=== PATIENT | male | born 1945 | race Caucasian/White ===

== ENCOUNTER 2021-10-25 17:02 | Inpatient (IN) | payer MEDICARE ==
[2021-10-25] MEDS ORDERED: ZIPRASIDONE MESYLATE 20 MG VIAL IM PRN (20:40)
[2021-10-25] MEDS: traZODone 100 MG TAB PO SCH (22:57)
--- NOTE | 2021-10-26 08:29 | History and Physical Report ---
GP History & Physical - History of Present Illness Date of admission: 10/25/21 Date of Examination: 10/26/21 Reason for Admission: Failure of Outpatient Treatment, Severe anxiety/depression, Unable to care for self History of Present Illness: The patient was seen today. He is confused and appears restless in bed. He is moving about with his feet. He is reaching his hand and asking me to pull him up. The patient is already as up in the bed as he can go. He is unable to give any insight into his history or what's presently going on with him. PAST PSYCHIATRIC HISTORY: Unable to assess PAST MEDICAL HISTORY: unknown Family Psychiatric History: None reported or documented SOCIAL HISTORY Unable to assess REVIEW OF SYSTEMS Unable to assess MENTAL STATUS EXAMINATION Unable to assess Assessment (1) Schizophrenia Treatment Plan Patient admitted for inpatient psychiatric evaluation, medication adjustment and close monitoring The patient's behavior, mood, sleep and appetite will be closely monitored. Patient enrolled in individual and group therapeutic sessions and encouraged to attend. Patient provided with a safe and structured environment. Patient's physical health needs will be addressed by the Hospitalist. Hospitalist Consulted Labs including CBC, CMP, Lipid profile and Hemoglobin A1C levels ordered for baseline reference Social Assessment will be completed and the Production Assistant will work with patient and family to ensure a suitable and safe disposition Medication adjustment will be made as clinically indicated Start Valproic 125mg po daily Usual Wellness Mormon/Preservation: - Start Trazodone 50 mg po QHS & 50 mg po QHS PRN between 10 PM & 2 AM for insomnia - Start Melatonin 5 mg po QHS to promote circadian rhythm The patient agreed on the treatment plan, understood the risk, benefit, alternative treatment, potential consequence of no treatment, and gave informed consent. Estimated days:7 Post hospital care: primary care provider, psychiatric provider Case staffed with Dr. Alvarado Legal Status: Voluntary Reaction to Hospitalization: Accepting Medications and Allergies Allergies Allergy/AdvReac Type Severity Reaction Status Date / Time No Known Drug Allergies Allergy Unknown Verified 10/25/21 20:31 Home Medications Medication Instructions Recorded Confirmed Last Taken Type Benazepril/Hydrochlorothiazide 10 - 12.5 mg PO DAILY 10/25/21 10/25/21 Unknown History [Lotensin Hct 10-12.5 mg Tablet] Nortriptyline HCl 10 mg PO HS 10/25/21 10/25/21 Unknown History Pantoprazole [Protonix] 40 mg PO QDAY 10/25/21 10/25/21 Unknown History Potassium Chloride [K-Dur] 20 meq PO QDAY 10/25/21 10/25/21 Unknown History Azithromycin [Zithromax] 250 mg PO UNK 10/26/21 10/26/21 Unknown History Cefdinir 300 mg PO BID MDD DISPENSE 14 10/26/21 10/26/21 Unknown History CAPSULE Active Meds: Active Medications Trazodone HCl (Trazodone 100 Mg Tab) 100 mg PO QHS [id number] Last Admin: 10/25/21 22:57 Dose: 100 mg Ziprasidone (Ziprasidone Mesylate 20 Mg Vial) 10 mg IM Q6H PRN PRN Reason: Agitation Results - Results Labs/Vitals: Laboratory Last Values POC Glucose 125 mg/dL (70-105) H 10/26/21 07:17 Last Vital Signs Temp 99.4 F 10/25/21 20:20 Pulse 87 10/25/21 20:20 Resp 17 10/25/21 20:20 BP 175/93 10/25/21 20:20 Pulse Ox 96 10/25/21 20:20 Physical Examination - Constitutional Vitals: Vital Signs Temp Pulse Resp BP Pulse Ox 99.4 F 87 17 175/93 96 10/25/21 20:20 10/25/21 20:20 10/25/21 20:20 10/25/21 20:20 10/25/21 20:20 Temperature -Last 24 Hours Temperature 99.4 F Mental Status Exam - Vital signs Last Vital Signs Temp 99.4 F 10/25/21 20:20 Pulse 87 10/25/21 20:20 Resp 17 10/25/21 20:20 BP 175/93 10/25/21 20:20 Pulse Ox 96 10/25/21 20:20 Physician Certification - Certification Statement Physician Certification Statement: This is an acknowledgement statement that MARK CHAVIS is a 76 year old M who requires inpatient psychiatric admission for treatment which could reasonably be expected to improve the patient's condition for Estimated period of time patient will need to remain in the hospital: [ ] Plan for post-hospital care: [ ]
[2021-10-26] MEDS ORDERED: BENAZEPRIL PO SCH (10:00)
[2021-10-26] MEDS ORDERED: HYDROCHLOROTHIAZIDE PO SCH (10:00)
[2021-10-26] MEDS ORDERED: [UNRECOGNIZED DRUG - OTHER] PO SCH (10:00)
[2021-10-26] MEDS ORDERED: NON-FORMULARY EACH (Cefdinir [Cefdinir] 300 MG Capsule) PO SCH (10:00)
[2021-10-26] MEDS: POTASSIUM CHLORIDE ER 20 MEQ TAB PO SCH (10:47)
[2021-10-26] MEDS: LISINOPRIL 10 MG TAB PO SCH (10:47)
[2021-10-26] MEDS: PANTOPRAZOLE 40 MG TAB PO SCH (10:47)
[2021-10-26] MEDS: VALPROIC ACID 250 MG/5 ML ORAL LIQD PO SCH (10:48)
[2021-10-26] MEDS: hydroCHLOROthiazide 12.5 MG CAP PO SCH (10:48)
--- NOTE | 2021-10-26 11:01 | Consultation ---
History of Present Illness - Reason for Consult Consult date: 10/26/21 medical management Requesting physician: DEBRA ADAN - History of Present Illness 76 YO Male with Vascular Dementia with Behavioral Disturbance, Cerebral Atherosclerosis, Shzizophrenia, AFUA, Depression admitted to [facility] for psychiatric stabilization. Consult placed by Dr. Adan for medical management. Patient seen and evaluated in his room. No reports of fever, chills, chest pain, palpitation, adductive cough, skin rash, recent contact, or known exposure to COVID-19. Patient resting comfortably. Patient denies pain. Medications and Allergies Allergies Allergy/AdvReac Type Severity Reaction Status Date / Time No Known Drug Allergies Allergy Unknown Verified 10/25/21 20:31 Home Medications Medication Instructions Recorded Confirmed Last Taken Type Benazepril/Hydrochlorothiazide 10 - 12.5 mg PO DAILY 10/25/21 10/25/21 Unknown History [Lotensin Hct 10-12.5 mg Tablet] Nortriptyline HCl 10 mg PO HS 10/25/21 10/25/21 Unknown History Pantoprazole [Protonix] 40 mg PO QDAY 10/25/21 10/25/21 Unknown History Potassium Chloride [K-Dur] 20 meq PO QDAY 10/25/21 10/25/21 Unknown History Azithromycin [Zithromax] 250 mg PO UNK 10/26/21 10/26/21 Unknown History Cefdinir 300 mg PO BID MDD DISPENSE 14 10/26/21 10/26/21 Unknown History CAPSULE Active Meds: Active Medications Azithromycin (Azithromycin 250 Mg Tab) 250 mg PO [facility]; Protocol Hydrochlorothiazide (Hydrochlorothiazide 12.5 Mg Cap) 12.5 mg PO QDAY [facility] Last Admin: 10/26/21 10:48 Dose: 12.5 mg Lisinopril (Lisinopril 10 Mg Tab) 10 mg PO QDAY [facility] Last Admin: 10/26/21 10:47 Dose: 10 mg Miscellaneous Medication (Cefdinir [Cefdinir]) 300 mg PO BID [facility] Nortriptyline HCl (Nortriptyline 10 Mg Cap) 10 mg PO [facility] Pantoprazole Sodium (Pantoprazole 40 Mg Tab) 40 mg PO QDAY [facility] Last Admin: 10/26/21 10:47 Dose: 40 mg Potassium Chloride (Potassium Chloride Er 20 Meq Tab) 20 meq PO QDAY [facility] Last Admin: 10/26/21 10:47 Dose: 20 meq Trazodone HCl (Trazodone 100 Mg Tab) 100 mg PO QHS [facility] Last Admin: 10/25/21 22:57 Dose: 100 mg Valproic Acid (Valproic Acid 250 Mg/5 Ml Oral Liqd) 125 mg PO DAILY [facility] Last Admin: 10/26/21 10:48 Dose: 125 mg Ziprasidone (Ziprasidone Mesylate 20 Mg Vial) 10 mg IM Q6H PRN PRN Reason: Agitation Exam - Constitutional Vitals: Temp Pulse Resp BP Pulse Ox 98.2 F 88 16 160/77 96 10/26/21 08:21 10/26/21 10:47 10/26/21 08:21 10/26/21 10:47 10/25/21 20:20 Results - Labs Labs: Abnormal lab results 10/26/21 Range/Units 07:17 POC Glucose 125 H (70-105) mg/dL Assessment and Plan - Patient Problems (1) Pneumonia Current Visit: Yes Status: Acute Plan to address problem: Continue oral antibiotic therapy for 5 days to complete outpatient treatment regimen (2) Vascular dementia with behavioral disturbance Current Visit: Yes Status: Acute Plan to address problem: Verbal prompting, verbal redirection, benzodiazepine therapy as clinically indicated. (3) Cerebral atherosclerosis Current Visit: Yes Status: Acute Plan to address problem: Risk factor reduction therapy, antiplatelet therapy as clinically indicated. (4) Hypertension Current Visit: Yes Status: Acute Qualifiers: Hypertension type: primary hypertension Qualified Code(s): I10 - Essential (primary) hypertension Plan to address problem: Monitor blood pressure every shift, continue medical management (5) GERD (gastroesophageal reflux disease) Current Visit: Yes Status: Acute Qualifiers: Esophagitis presence: without esophagitis Qualified Code(s): K21.9 - Gastro-esophageal reflux disease without esophagitis Plan to address problem: PPI therapy, supportive care (6) Depression Current Visit: Yes Status: Acute Plan to address problem: Continue medical management, behavior change counseling. (7) Advance care planning Current Visit: Yes Status: Acute Plan to address problem: Disease education conducted, care plan discussed, diagnoses discussed, prognosis discussed, patient is full code. Patient acknowledges understanding and agreement with care plan, +30 minutes.
[2021-10-26] MEDS ORDERED: FLU VACC QUAD 2021-22(6MOS UP)/PF 60 MCG/0.5 ML SYRINGE IM ONE (12:00)
[2021-10-26] MEDS: AZITHROMYCIN 250 MG TAB PO SCH (15:48)
[2021-10-26] MEDS: traZODone 100 MG TAB PO SCH (21:51)
[2021-10-26] MEDS: NORTRIPTYLINE 10 MG CAP PO SCH (21:51)
--- NOTE | 2021-10-27 09:02 | Progress Note ---
Subjective Date of service: 10/27/21 Principal diagnosis: Dementia w/Bheavioral Disturbance Subjective Comment: The patient was seen today. He is confused. He is staring in bed awake. He is staring at the ceiling. He then says something that's incomprehensible. REVIEW OF SYSTEMS Unable to assess MENTAL STATUS EXAMINATION Unable to assess Assessment (1) Schizophrenia Treatment Plan Patient admitted for inpatient psychiatric evaluation, medication adjustment and close monitoring The patient's behavior, mood, sleep and appetite will be closely monitored. Patient enrolled in individual and group therapeutic sessions and encouraged to attend. Patient provided with a safe and structured environment. Patient's physical health needs will be addressed by the Hospitalist. Hospitalist Consulted Labs including CBC, CMP, Lipid profile and Hemoglobin A1C levels ordered for baseline reference Social Assessment will be completed and the Seal Mixer will work with patient and family to ensure a suitable and safe disposition Medication adjustment will be made as clinically indicated Start Valproic 125mg po daily yesterday No changes made today Usual Wellness Mandaeism/Preservation: - Start Trazodone 50 mg po QHS & 50 mg po QHS PRN between 10 PM & 2 AM for insomnia - Start Melatonin 5 mg po QHS to promote circadian rhythm The patient agreed on the treatment plan, understood the risk, benefit, alternative treatment, potential consequence of no treatment, and gave informed consent. Estimated days:7 Post hospital care: primary care provider, psychiatric provider Case staffed with Dr. Alvarado Medications and Allergies Allergies Allergy/AdvReac Type Severity Reaction Status Date / Time No Known Drug Allergies Allergy Unknown Verified 10/25/21 20:31 Home Medications Medication Instructions Recorded Confirmed Last Taken Type Benazepril/Hydrochlorothiazide 10 - 12.5 mg PO DAILY 10/25/21 10/25/21 Unknown History [Lotensin Hct 10-12.5 mg Tablet] Nortriptyline HCl 10 mg PO HS 10/25/21 10/25/21 Unknown History Pantoprazole [Protonix] 40 mg PO QDAY 10/25/21 10/25/21 Unknown History Potassium Chloride [K-Dur] 20 meq PO QDAY 10/25/21 10/25/21 Unknown History Azithromycin [Zithromax] 250 mg PO UNK 10/26/21 10/26/21 Unknown History Cefdinir 300 mg PO BID MDD DISPENSE 14 10/26/21 10/26/21 Unknown History CAPSULE Active Meds: Active Medications Azithromycin (Azithromycin 250 Mg Tab) 250 mg PO DAILY [facility]; Protocol Stop: 10/30/21 10:01 Last Admin: 10/26/21 15:48 Dose: 250 mg Cefuroxime Axetil (Cefuroxime 250 Mg Tab) 250 mg PO Q12HR [facility]; Protocol Stop: 10/31/21 22:01 Hydrochlorothiazide (Hydrochlorothiazide 12.5 Mg Cap) 12.5 mg PO QDAY [facility] Last Admin: 10/26/21 10:48 Dose: 12.5 mg Lisinopril (Lisinopril 10 Mg Tab) 10 mg PO QDAY [facility] Last Admin: 10/26/21 10:47 Dose: 10 mg Nortriptyline HCl (Nortriptyline 10 Mg Cap) 10 mg PO HS [facility] Last Admin: 10/26/21 21:51 Dose: 10 mg Pantoprazole Sodium (Pantoprazole 40 Mg Tab) 40 mg PO QDAY [facility] Last Admin: 10/26/21 10:47 Dose: 40 mg Potassium Chloride (Potassium Chloride Er 20 Meq Tab) 20 meq PO QDAY [facility] Last Admin: 10/26/21 10:47 Dose: 20 meq Trazodone HCl (Trazodone 100 Mg Tab) 100 mg PO QHS [facility] Last Admin: 10/26/21 21:51 Dose: 100 mg Valproic Acid (Valproic Acid 250 Mg/5 Ml Oral Liqd) 125 mg PO DAILY [facility] Last Admin: 10/26/21 10:48 Dose: 125 mg Ziprasidone (Ziprasidone Mesylate 20 Mg Vial) 10 mg IM Q6H PRN PRN Reason: Agitation Results - Results Labs/Vitals: Laboratory Last Values POC Glucose 168 mg/dL (70-105) H 10/27/21 06:15 Last Vital Signs Temp 97.2 F L 10/26/21 20:00 Pulse 100 H 10/26/21 20:00 Resp 20 10/26/21 20:00 BP 170/93 10/26/21 20:00 Pulse Ox 96 10/26/21 20:00
[2021-10-27] MEDS: VALPROIC ACID 250 MG/5 ML ORAL LIQD PO SCH (10:38)
[2021-10-27] MEDS: AZITHROMYCIN 250 MG TAB PO SCH (10:38)
[2021-10-27] MEDS: hydroCHLOROthiazide 12.5 MG CAP PO SCH (10:38)
[2021-10-27] MEDS: POTASSIUM CHLORIDE ER 20 MEQ TAB PO SCH (10:38)
[2021-10-27] MEDS: PANTOPRAZOLE 40 MG TAB PO SCH (10:39)
[2021-10-27] MEDS: LISINOPRIL 10 MG TAB PO SCH (10:41)
[2021-10-27 11:36] LABS: Basophils % (Auto) 0.2 % (0.0-1.8); Hematocrit 43.6 % (35.5-45.6); Hemoglobin 14.7 gm/dl (11.8-15.2); Lymphocytes # (Auto) 1.5 K/mm3 (1.2-5.4); Lymphocytes % (Auto) 9.4 % (13.4-35.0); Mean Corpuscular HGB Conc 34 % (32-34); Mean Corpuscular Volume 90 fl (84-94); Monocytes # (Auto) 1.5 K/mm3 (0.0-0.8); Monocytes % (Auto) 9.8 % (0.0-7.3); Platelet Count 240 K/mm3 (140-440); Red Blood Count 4.86 M/mm3 (3.65-5.03); Red Cell Distribution Width 13.5 % (13.2-15.2)
[2021-10-27 12:11] LABS: Alanine Aminotransferase 24 units/L (7-56); Albumin 3.4 g/dL (3.9-5); BUN/Creatinine Ratio 13; Blood Urea Nitrogen 13 mg/dL (9-20); HDL Cholesterol 34 mg/dL (40-59); Hemolysis Index 2; LDL Cholesterol,Direct 119 mg/dL (50-130)
[2021-10-27] MEDS: traZODone 100 MG TAB PO SCH (21:17)
[2021-10-27] MEDS: NORTRIPTYLINE 10 MG CAP PO SCH (21:17)
--- NOTE | 2021-10-28 10:00 | Progress Note ---
Subjective Date of service: 10/28/21 Principal diagnosis: Dementia w/Bheavioral Disturbance Subjective Comment: 10/28/21: The patient was seen today. The patient is confused. Per nurse, he slept through the night. No aggressive behaviors reported. REVIEW OF SYSTEMS Unable to assess MENTAL STATUS EXAMINATION Unable to assess Assessment (1) Schizophrenia Treatment Plan Patient admitted for inpatient psychiatric evaluation, medication adjustment and close monitoring The patient's behavior, mood, sleep and appetite will be closely monitored. Patient enrolled in individual and group therapeutic sessions and encouraged to attend. Patient provided with a safe and structured environment. Patient's physical health needs will be addressed by the Hospitalist. Hospitalist Consulted Labs including CBC, CMP, Lipid profile and Hemoglobin A1C levels ordered for baseline reference Social Assessment will be completed and the Medical Staff Credentialing Coordinator will work with pat ient and family to ensure a suitable and safe disposition Medication adjustment will be made as clinically indicated Continue Valproic 125mg po daily yesterday No changes made today Usual Wellness Confucianist/Preservation: - Start Trazodone 50 mg po QHS & 50 mg po QHS PRN between 10 PM & 2 AM for insomnia - Start Melatonin 5 mg po QHS to promote circadian rhythm The patient agreed on the treatment plan, understood the risk, benefit, alternative treatment, potential consequence of no treatment, and gave informed consent. Estimated days:7 Post hospital care: primary care provider, psychiatric provider Case staffed with Dr. Alvarado Medications and Allergies Medications and Allergies Allergies Allergy/AdvReac Type Severity Reaction Status Date / Time No Known Drug Allergies Allergy Unknown Verified 10/25/21 20:31 Home Medications Medication Instructions Recorded Confirmed Last Taken Type Benazepril/Hydrochlorothiazide 10 - 12.5 mg PO DAILY 10/25/21 10/25/21 Unknown History [Lotensin Hct 10-12.5 mg Tablet] Nortriptyline HCl 10 mg PO HS 10/25/21 10/25/21 Unknown History Pantoprazole [Protonix] 40 mg PO QDAY 10/25/21 10/25/21 Unknown History Potassium Chloride [K-Dur] 20 meq PO QDAY 10/25/21 10/25/21 Unknown History Azithromycin [Zithromax] 250 mg PO UNK 10/26/21 10/26/21 Unknown History Cefdinir 300 mg PO BID MDD DISPENSE 14 10/26/21 10/26/21 Unknown History CAPSULE Active Meds: Active Medications Azithromycin (Azithromycin 250 Mg Tab) 250 mg PO DAILY [facility]; Protocol Stop: 10/30/21 10:01 Last Admin: 10/27/21 10:38 Dose: 250 mg Cefuroxime Axetil (Cefuroxime 250 Mg Tab) 250 mg PO Q12HR [facility]; Protocol Stop: 10/31/21 22:01 Last Admin: 10/27/21 21:16 Dose: 250 mg Hydrochlorothiazide (Hydrochlorothiazide 12.5 Mg Cap) 12.5 mg PO QDAY [facility] Last Admin: 10/27/21 10:38 Dose: 12.5 mg Lisinopril (Lisinopril 10 Mg Tab) 10 mg PO QDAY [facility] Last Admin: 10/27/21 10:41 Dose: 10 mg Nortriptyline HCl (Nortriptyline 10 Mg Cap) 10 mg PO HS [facility] Last Admin: 10/27/21 21:17 Dose: 10 mg Pantoprazole Sodium (Pantoprazole 40 Mg Tab) 40 mg PO QDAY [facility] Last Admin: 10/27/21 10:39 Dose: 40 mg Potassium Chloride (Potassium Chloride Er 20 Meq Tab) 20 meq PO QDAY [facility] Last Admin: 10/27/21 10:38 Dose: 20 meq Trazodone HCl (Trazodone 100 Mg Tab) 100 mg PO QHS [facility] Last Admin: 10/27/21 21:17 Dose: 100 mg Valproic Acid (Valproic Acid 250 Mg/5 Ml Oral Liqd) 125 mg PO DAILY [facility] Last Admin: 10/27/21 10:38 Dose: 125 mg Ziprasidone (Ziprasidone Mesylate 20 Mg Vial) 10 mg IM Q6H PRN PRN Reason: Agitation Results - Results Labs/Vitals: Laboratory Last Values WBC 15.5 K/mm3 (4.5-11.0) H 10/27/21 10:52 RBC 4.86 M/mm3 (3.65-5.03) 10/27/21 10:52 Hgb 14.7 gm/dl (11.8-15.2) 10/27/21 10:52 Hct 43.6 % (35.5-45.6) 10/27/21 10:52 MCV 90 fl (84-94) 10/27/21 10:52 MCH 30 pg (28-32) 10/27/21 10:52 MCHC 34 % (32-34) 10/27/21 10:52 RDW 13.5 % (13.2-15.2) 10/27/21 10:52 Plt Count 240 K/mm3 (140-440) 10/27/21 10:52 Lymph % (Auto) 9.4 % (13.4-35.0) L 10/27/21 10:52 [place] % (Auto) 9.8 % (0.0-7.3) H 10/27/21 10:52 Eos % (Auto) 0.0 % (0.0-4.3) 10/27/21 10:52 Baso % (Auto) 0.2 % (0.0-1.8) 10/27/21 10:52 Lymph # (Auto) 1.5 K/mm3 (1.2-5.4) 10/27/21 10:52 [place] # (Auto) 1.5 K/mm3 (0.0-0.8) H 10/27/21 10:52 Eos # (Auto) 0.0 K/mm3 (0.0-0.4) 10/27/21 10:52 Baso # (Auto) 0.0 K/mm3 (0.0-0.1) 10/27/21 10:52 Seg Neutrophils % 80.6 % (40.0-70.0) H 10/27/21 10:52 Seg Neutrophils # 12.5 K/mm3 (1.8-7.7) H 10/27/21 10:52 Sodium 141 mmol/L (137-145) 10/27/21 10:52 Potassium 3.2 mmol/L (3.6-5.0) L 10/27/21 10:52 Chloride 102.4 mmol/L (98-107) 10/27/21 10:52 Carbon Dioxide 16 mmol/L (22-30) L 10/27/21 10:52 Anion Gap 26 mmol/L 10/27/21 10:52 BUN 13 mg/dL (9-20) 10/27/21 10:52 Creatinine 1.0 mg/dL (0.8-1.3) 10/27/21 10:52 Estimated GFR > 60 ml/min 10/27/21 10:52 BUN/Creatinine Ratio 13 % 10/27/21 10:52 Glucose 172 mg/dL (75-100) H 10/27/21 10:52 POC Glucose 160 mg/dL (70-105) H 10/28/21 07:33 Hemoglobin A1c 8.1 % (4-6) H 10/27/21 10:52 Calcium 10.0 mg/dL (8.4-10.2) 10/27/21 10:52 Total Bilirubin 0.90 mg/dL (0.1-1.2) 10/27/21 10:52 AST 20 units/L (5-40) 10/27/21 10:52 ALT 24 units/L (7-56) 10/27/21 10:52 Alkaline Phosphatase 95 units/L (35-129) 10/27/21 10:52 Total Protein 7.5 g/dL (6.3-8.2) 10/27/21 10:52 Albumin 3.4 g/dL (3.9-5) L 10/27/21 10:52 Albumin/Globulin Ratio 0.8 % 10/27/21 10:52 Triglycerides 135 mg/dL (2-149) 10/27/21 10:52 Cholesterol 177 mg/dL (50-199) 10/27/21 10:52 LDL Cholesterol Direct 119 mg/dL (50-130) 10/27/21 10:52 HDL Cholesterol 34 mg/dL (40-59) L 10/27/21 10:52 Cholesterol/HDL Ratio 5.20 % 10/27/21 10:52 TSH 1.720 mlU/mL (0.270-4.200) 10/27/21 10:52 Last Vital Signs Temp 98.6 F 10/27/21 22:00 Pulse 84 10/27/21 22:00 Resp 20 10/27/21 22:00 BP 145/81 10/27/21 22:00 Pulse Ox 100 10/27/21 22:00
[2021-10-28] MEDS: hydroCHLOROthiazide 12.5 MG CAP PO SCH (11:29)
[2021-10-28] MEDS: POTASSIUM CHLORIDE ER 20 MEQ TAB PO SCH (11:29)
[2021-10-28] MEDS: PANTOPRAZOLE 40 MG TAB PO SCH (11:29)
[2021-10-28] MEDS: VALPROIC ACID 250 MG/5 ML ORAL LIQD PO SCH (11:30)
[2021-10-28] MEDS: AZITHROMYCIN 250 MG TAB PO SCH (11:30)
[2021-10-28] MEDS: LISINOPRIL 10 MG TAB PO SCH (11:30)
[2021-10-28] MEDS: NORTRIPTYLINE 10 MG CAP PO SCH (21:28)
[2021-10-28] MEDS: traZODone 100 MG TAB PO SCH (21:28)
--- NOTE | 2021-10-29 07:30 | Progress Note ---
Assessment and Plan - Patient Problems (1) Pneumonia Current Visit: Yes Status: Acute Plan to address problem: Continue oral antibiotic therapy for 5 days to complete outpatient treatment regimen (2) Vascular dementia with behavioral disturbance Current Visit: Yes Status: Acute Plan to address problem: Verbal prompting, verbal redirection, benzodiazepine therapy as clinically indicated. (3) Cerebral atherosclerosis Current Visit: Yes Status: Acute Plan to address problem: Risk factor reduction therapy, antiplatelet therapy as clinically indicated. (4) Hypertension Current Visit: Yes Status: Acute Qualifiers: Hypertension type: primary hypertension Qualified Code(s): I10 - Essential (primary) hypertension Plan to address problem: Monitor blood pressure every shift, continue medical management (5) GERD (gastroesophageal reflux disease) Current Visit: Yes Status: Acute Qualifiers: Esophagitis presence: without esophagitis Qualified Code(s): K21.9 - Gastro-esophageal reflux disease without esophagitis Plan to address problem: PPI therapy, supportive care (6) Depression Current Visit: Yes Status: Acute Plan to address problem: Continue medical management, behavior change counseling. (7) Advance care planning Current Visit: Yes Status: Acute Plan to address problem: Disease education conducted, care plan discussed, diagnoses discussed, prognosis discussed, patient is full code. Patient acknowledges understanding and agreement with care plan, +30 minutes. History Interval history: 76 YO Male with Vascular Dementia with Behavioral Disturbance, Cerebral Atherosclerosis, Shzizophrenia, AFUA, Depression admitted to [facility] for psychiatric stabilization. Consult placed by Dr. Weldon for medical management. Patient seen and evaluated in his room. N Patient resting comfortably. Patient denies pain. Hospitalist Physical - Constitutional Vitals: Temp Pulse Resp BP Pulse Ox 98.4 F 103 H 17 158/85 94 10/28/21 20:19 10/28/21 20:19 10/28/21 20:19 10/28/21 20:19 10/28/21 20:19 General appearance: Present: no acute distress - EENT Eyes: Present: PERRL ENT: hearing decreased - Neck Neck: Present: supple - Respiratory Respiratory effort: normal Respiratory: bilateral: CTA - Cardiovascular Rhythm: regular Heart Sounds: Present: S1 & S2 - Extremities Extremities: no ischemia Peripheral Pulses: within normal limits - Abdominal General gastrointestinal: soft, non-tender, non-distended - Integumentary Integumentary: Present: clear, dry - Psychiatric Psychiatric: cooperative - Neurologic Neurologic: CNII-XII intact Results - Labs CBC & Chem 7: 10/27/21 10:52 10/27/21 10:52 Labs: Laboratory Last Values WBC 15.5 K/mm3 (4.5-11.0) H 10/27/21 10:52 RBC 4.86 M/mm3 (3.65-5.03) 10/27/21 10:52 Hgb 14.7 gm/dl (11.8-15.2) 10/27/21 10:52 Hct 43.6 % (35.5-45.6) 10/27/21 10:52 MCV 90 fl (84-94) 10/27/21 10:52 MCH 30 pg (28-32) 10/27/21 10:52 MCHC 34 % (32-34) 10/27/21 10:52 RDW 13.5 % (13.2-15.2) 10/27/21 10:52 Plt Count 240 K/mm3 (140-440) 10/27/21 10:52 Lymph % (Auto) 9.4 % (13.4-35.0) L 10/27/21 10:52 [place] % (Auto) 9.8 % (0.0-7.3) H 10/27/21 10:52 Eos % (Auto) 0.0 % (0.0-4.3) 10/27/21 10:52 Baso % (Auto) 0.2 % (0.0-1.8) 10/27/21 10:52 Lymph # (Auto) 1.5 K/mm3 (1.2-5.4) 10/27/21 10:52 [place] # (Auto) 1.5 K/mm3 (0.0-0.8) H 10/27/21 10:52 Eos # (Auto) 0.0 K/mm3 (0.0-0.4) 10/27/21 10:52 Baso # (Auto) 0.0 K/mm3 (0.0-0.1) 10/27/21 10:52 Seg Neutrophils % 80.6 % (40.0-70.0) H 10/27/21 10:52 Seg Neutrophils # 12.5 K/mm3 (1.8-7.7) H 10/27/21 10:52 Sodium 141 mmol/L (137-145) 10/27/21 10:52 Potassium 3.2 mmol/L (3.6-5.0) L 10/27/21 10:52 Chloride 102.4 mmol/L (98-107) 10/27/21 10:52 Carbon Dioxide 16 mmol/L (22-30) L 10/27/21 10:52 Anion Gap 26 mmol/L 10/27/21 10:52 BUN 13 mg/dL (9-20) 10/27/21 10:52 Creatinine 1.0 mg/dL (0.8-1.3) 10/27/21 10:52 Estimated GFR > 60 ml/min 10/27/21 10:52 BUN/Creatinine Ratio 13 % 10/27/21 10:52 Glucose 172 mg/dL (75-100) H 10/27/21 10:52 POC Glucose 171 mg/dL (70-105) H 10/29/21 06:08 Hemoglobin A1c 8.1 % (4-6) H 10/27/21 10:52 Calcium 10.0 mg/dL (8.4-10.2) 10/27/21 10:52 Total Bilirubin 0.90 mg/dL (0.1-1.2) 10/27/21 10:52 AST 20 units/L (5-40) 10/27/21 10:52 ALT 24 units/L (7-56) 10/27/21 10:52 Alkaline Phosphatase 95 units/L (35-129) 10/27/21 10:52 Total Protein 7.5 g/dL (6.3-8.2) 10/27/21 10:52 Albumin 3.4 g/dL (3.9-5) L 10/27/21 10:52 Albumin/Globulin Ratio 0.8 % 10/27/21 10:52 Triglycerides 135 mg/dL (2-149) 10/27/21 10:52 Cholesterol 177 mg/dL (50-199) 10/27/21 10:52 LDL Cholesterol Direct 119 mg/dL (50-130) 10/27/21 10:52 HDL Cholesterol 34 mg/dL (40-59) L 10/27/21 10:52 Cholesterol/HDL Ratio 5.20 % 10/27/21 10:52 TSH 1.720 mlU/mL (0.270-4.200) 10/27/21 10:52 Alexander/IV: Voiding Method Diaper Active Medications - Current Medications Current Medications: Generic Name Dose Route Start Last Admin Trade Name Freq PRN Reason Stop Dose Admin Azithromycin 250 mg 10/26/21 15:00 10/28/21 11:30 Azithromycin 250 Mg Tab PO 10/30/21 10:01 250 mg DAILY ZULEYMA Administration Protocol Cefuroxime Axetil 250 mg 10/27/21 10:00 10/28/21 21:28 Cefuroxime 250 Mg Tab PO 10/31/21 22:01 250 mg Q12HR ZULEYMA Administration Protocol Hydrochlorothiazide 12.5 mg 10/26/21 10:00 10/28/21 11:29 Hydrochlorothiazide 12.5 Mg Cap PO 12.5 mg QDAY ZULEYMA Administration Lisinopril 10 mg 10/26/21 10:00 10/28/21 11:30 Lisinopril 10 Mg Tab PO 10 mg QDAY ZULEYMA Administration Nortriptyline HCl 10 mg 10/26/21 22:00 10/28/21 21:28 Nortriptyline 10 Mg Cap PO 10 mg HS ZULEYMA Administration Pantoprazole Sodium 40 mg 10/26/21 10:00 10/28/21 11:29 Pantoprazole 40 Mg Tab PO 40 mg QDAY ZULEYMA Administration Potassium Chloride 20 meq 10/26/21 10:00 10/28/21 11:29 Potassium Chloride Er 20 Meq Tab PO 20 meq QDAY ZULEYMA Administration Trazodone HCl 100 mg 10/25/21 22:00 10/28/21 21:28 Trazodone 100 Mg Tab PO 100 mg QHS ZULEYMA Administration Valproic Acid 125 mg 10/26/21 10:00 10/28/21 11:30 Valproic Acid 250 Mg/5 Ml Oral Liqd PO 125 mg DAILY ZULEYMA Administration Ziprasidone 10 mg 10/25/21 20:40 Ziprasidone Mesylate 20 Mg Vial IM Q6H PRN Agitation
--- NOTE | 2021-10-29 08:42 | Progress Note ---
Subjective Date of service: 10/29/21 Principal diagnosis: Dementia w/Bheavioral Disturbance Subjective Comment: 10/28/21: The patient was seen today. The patient is confused. Per nurse, he slept through the night. No aggressive behaviors reported. 10/29/21: The patient was seen resting in bed with eyes closed. The patient did not want to talk. Per nurse, " pt is alert and oriented to person, calm but resistive with taking medication and eating, he took his medication with encouragement in apple sauce, he was able to consumed one cup of juice, one cup of pudding, and one cup of apple sauce overnight, he rested well, slept through the night." REVIEW OF SYSTEMS Unable to assess MENTAL STATUS EXAMINATION Unable to assess Assessment (1) Schizophrenia Treatment Plan Patient admitted for inpatient psychiatric evaluation, medication adjustment and close monitoring The patient's behavior, mood, sleep and appetite will be closely monitored. Patient enrolled in individual and group therapeutic sessions and encouraged to attend. Patient provided with a safe and structured environment. Patient's physical health needs will be addressed by the Hospitalist. Hospitalist Consulted Labs including CBC, CMP, Lipid profile and Hemoglobin A1C levels ordered for baseline reference Social Assessment will be completed and the Account Strategist will work with patient and family to ensure a suitable and safe disposition Medication adjustment will be made as clinically indicated Continue Valproic 125mg po daily yesterday No changes made today Usual Wellness Sikh/Preservation: - Start Trazodone 50 mg po QHS & 50 mg po QHS PRN between 10 PM & 2 AM for insomnia - Start Melatonin 5 mg po QHS to promote circadian rhythm The patient agreed on the treatment plan, understood the risk, benefit, alternative treatment, potential consequence of no treatment, and gave informed consent. Estimated days:4 Post hospital care: primary care provider, psychiatric provider Case staffed with Dr. Alvarado Medications and Allergies Medications and Allergies Allergies Allergy/AdvReac Type Severity Reaction Status Date / Time No Known Drug Allergies Allergy Unknown Verified 10/25/21 20:31 Home Medications Medication Instructions Recorded Confirmed Last Taken Type Benazepril/Hydrochlorothiazide 10 - 12.5 mg PO DAILY 10/25/21 10/25/21 Unknown History [Lotensin Hct 10-12.5 mg Tablet] Nortriptyline HCl 10 mg PO HS 10/25/21 10/25/21 Unknown History Pantoprazole [Protonix] 40 mg PO QDAY 10/25/21 10/25/21 Unknown History Potassium Chloride [K-Dur] 20 meq PO QDAY 10/25/21 10/25/21 Unknown History Azithromycin [Zithromax] 250 mg PO UNK 10/26/21 10/26/21 Unknown History Cefdinir 300 mg PO BID MDD DISPENSE 14 10/26/21 10/26/21 Unknown History CAPSULE Active Meds: Active Medications Azithromycin (Azithromycin 250 Mg Tab) 250 mg PO DAILY [facility]; Protocol Stop: 10/30/21 10:01 Last Admin: 10/28/21 11:30 Dose: 250 mg Cefuroxime Axetil (Cefuroxime 250 Mg Tab) 250 mg PO Q12HR [facility]; Protocol Stop: 10/31/21 22:01 Last Admin: 10/28/21 21:28 Dose: 250 mg Hydrochlorothiazide (Hydrochlorothiazide 12.5 Mg Cap) 12.5 mg PO QDAY [facility] Last Admin: 10/28/21 11:29 Dose: 12.5 mg Lisinopril (Lisinopril 10 Mg Tab) 10 mg PO QDAY [facility] Last Admin: 10/28/21 11:30 Dose: 10 mg Nortriptyline HCl (Nortriptyline 10 Mg Cap) 10 mg PO [facility] Last Admin: 10/28/21 21:28 Dose: 10 mg Pantoprazole Sodium (Pantoprazole 40 Mg Tab) 40 mg PO QDAY [facility] Last Admin: 10/28/21 11:29 Dose: 40 mg Potassium Chloride (Potassium Chloride Er 20 Meq Tab) 20 meq PO QDAY [facility] Last Admin: 10/28/21 11:29 Dose: 20 meq Trazodone HCl (Trazodone 100 Mg Tab) 100 mg PO QHS [facility] Last Admin: 10/28/21 21:28 Dose: 100 mg Valproic Acid (Valproic Acid 250 Mg/5 Ml Oral Liqd) 125 mg PO DAILY [facility] Last Admin: 10/28/21 11:30 Dose: 125 mg Ziprasidone (Ziprasidone Mesylate 20 Mg Vial) 10 mg IM Q6H PRN PRN Reason: Agitation Results - Results Labs/Vitals: Laboratory Last Values WBC 15.5 K/mm3 (4.5-11.0) H 10/27/21 10:52 RBC 4.86 M/mm3 (3.65-5.03) 10/27/21 10:52 Hgb 14.7 gm/dl (11.8-15.2) 10/27/21 10:52 Hct 43.6 % (35.5-45.6) 10/27/21 10:52 MCV 90 fl (84-94) 10/27/21 10:52 MCH 30 pg (28-32) 10/27/21 10:52 MCHC 34 % (32-34) 10/27/21 10:52 RDW 13.5 % (13.2-15.2) 10/27/21 10:52 Plt Count 240 K/mm3 (140-440) 10/27/21 10:52 Lymph % (Auto) 9.4 % (13.4-35.0) L 10/27/21 10:52 [place] % (Auto) 9.8 % (0.0-7.3) H 10/27/21 10:52 Eos % (Auto) 0.0 % (0.0-4.3) 10/27/21 10:52 Baso % (Auto) 0.2 % (0.0-1.8) 10/27/21 10:52 Lymph # (Auto) 1.5 K/mm3 (1.2-5.4) 10/27/21 10:52 [place] # (Auto) 1.5 K/mm3 (0.0-0.8) H 10/27/21 10:52 Eos # (Auto) 0.0 K/mm3 (0.0-0.4) 10/27/21 10:52 Baso # (Auto) 0.0 K/mm3 (0.0-0.1) 10/27/21 10:52 Seg Neutrophils % 80.6 % (40.0-70.0) H 10/27/21 10:52 Seg Neutrophils # 12.5 K/mm3 (1.8-7.7) H 10/27/21 10:52 Sodium 141 mmol/L (137-145) 10/27/21 10:52 Potassium 3.2 mmol/L (3.6-5.0) L 10/27/21 10:52 Chloride 102.4 mmol/L (98-107) 10/27/21 10:52 Carbon Dioxide 16 mmol/L (22-30) L 10/27/21 10:52 Anion Gap 26 mmol/L 10/27/21 10:52 BUN 13 mg/dL (9-20) 10/27/21 10:52 Creatinine 1.0 mg/dL (0.8-1.3) 10/27/21 10:52 Estimated GFR > 60 ml/min 10/27/21 10:52 BUN/Creatinine Ratio 13 % 10/27/21 10:52 Glucose 172 mg/dL (75-100) H 10/27/21 10:52 POC Glucose 171 mg/dL (70-105) H 10/29/21 06:08 Hemoglobin A1c 8.1 % (4-6) H 10/27/21 10:52 Calcium 10.0 mg/dL (8.4-10.2) 10/27/21 10:52 Total Bilirubin 0.90 mg/dL (0.1-1.2) 10/27/21 10:52 AST 20 units/L (5-40) 10/27/21 10:52 ALT 24 units/L (7-56) 10/27/21 10:52 Alkaline Phosphatase 95 units/L (35-129) 10/27/21 10:52 Total Protein 7.5 g/dL (6.3-8.2) 10/27/21 10:52 Albumin 3.4 g/dL (3.9-5) L 10/27/21 10:52 Albumin/Globulin Ratio 0.8 % 10/27/21 10:52 Triglycerides 135 mg/dL (2-149) 10/27/21 10:52 Cholesterol 177 mg/dL (50-199) 10/27/21 10:52 LDL Cholesterol Direct 119 mg/dL (50-130) 10/27/21 10:52 HDL Cholesterol 34 mg/dL (40-59) L 10/27/21 10:52 Cholesterol/HDL Ratio 5.20 % 10/27/21 10:52 TSH 1.720 mlU/mL (0.270-4.200) 10/27/21 10:52 Last Vital Signs Temp 98.4 F 10/28/21 20:19 Pulse 103 H 10/28/21 20:19 Resp 17 10/28/21 20:19 BP 158/85 10/28/21 20:19 Pulse Ox 94 10/28/21 20:19
[2021-10-29] MEDS: PANTOPRAZOLE 40 MG TAB PO SCH (10:25)
[2021-10-29] MEDS: hydroCHLOROthiazide 12.5 MG CAP PO SCH (10:25)
[2021-10-29] MEDS: LISINOPRIL 10 MG TAB PO SCH (10:26)
[2021-10-29] MEDS: VALPROIC ACID 250 MG/5 ML ORAL LIQD PO SCH (10:26)
[2021-10-29] MEDS: AZITHROMYCIN 250 MG TAB PO SCH (10:26)
[2021-10-29] MEDS: POTASSIUM CHLORIDE ER 20 MEQ TAB PO SCH (10:26)
[2021-10-29] MEDS: traZODone 100 MG TAB PO SCH (21:41)
[2021-10-29] MEDS: NORTRIPTYLINE 10 MG CAP PO SCH (21:42)
--- NOTE | 2021-10-30 08:55 | Progress Note ---
Subjective Date of service: 10/30/21 Principal diagnosis: Dementia w/Bheavioral Disturbance Subjective Comment: 10/28/21: The patient was seen today. The patient is confused. Per nurse, he slept through the night. No aggressive behaviors reported. 10/29/21: The patient was seen resting in bed with eyes closed. The patient did not want to talk. Per nurse, " pt is alert and oriented to person, calm but resistive with taking medication and eating, he took his medication with encouragement in apple sauce, he was able to consumed one cup of juice, one cup of pudding, and one cup of apple sauce overnight, he rested well, slept through the night." 10/30/21: The patient was seen this morning. He muttering words. The patient continues to be confused. Per nurse, "Pt received in bed awake. Pleaded with the mortgage underwriter to take him "out of this place." Oriented that he is in the hospital and doctor will determine when when he will discharge. Denies pain SI or HI. No acute distress observed and none reported." REVIEW OF SYSTEMS Unable to assess MENTAL STATUS EXAMINATION Unable to assess Assessment (1) Schizophrenia Treatment Plan Patient admitted for inpatient psychiatric evaluation, medication adjustment and close monitoring The patient's behavior, mood, sleep and appetite will be closely monitored. Patient enrolled in individual and group therapeutic sessions and encouraged to attend. Patient provided with a safe and structured environment. Patient's physical health needs will be addressed by the Hospitalist. Hospitalist Consulted Labs including CBC, CMP, Lipid profile and Hemoglobin A1C levels ordered for baseline reference Social Assessment will be completed and the Manager Security will work with patient and family to ensure a suitable and safe disposition Medication adjustment will be made as clinically indicated Continue Valproic 125mg po daily yesterday No changes made today Usual Wellness Presybeterian/Preservation: - Start Trazodone 50 mg po QHS & 50 mg po QHS PRN between 10 PM & 2 AM for insomnia - Start Melatonin 5 mg po QHS to promote circadian rhythm The patient agreed on the treatment plan, understood the risk, benefit, alternative treatment, potential consequence of no treatment, and gave informed consent. Estimated days:4 Post hospital care: primary care provider, psychiatric provider Case staffed with Dr. Alvarado Medications and Allergies Medications and Allergies Allergies Allergy/AdvReac Type Severity Reaction Status Date / Time No Known Drug Allergies Allergy Unknown Verified 10/25/21 20:31 Home Medications Medication Instructions Recorded Confirmed Last Taken Type Benazepril/Hydrochlorothiazide 10 - 12.5 mg PO DAILY 10/25/21 10/25/21 Unknown History [Lotensin Hct 10-12.5 mg Tablet] Nortriptyline HCl 10 mg PO HS 10/25/21 10/25/21 Unknown History Pantoprazole [Protonix] 40 mg PO QDAY 10/25/21 10/25/21 Unknown History Potassium Chloride [K-Dur] 20 meq PO QDAY 10/25/21 10/25/21 Unknown History Azithromycin [Zithromax] 250 mg PO UNK 10/26/21 10/26/21 Unknown History Cefdinir 300 mg PO BID MDD DISPENSE 14 10/26/21 10/26/21 Unknown History CAPSULE Active Meds: Active Medications Azithromycin (Azithromycin 250 Mg Tab) 250 mg PO DAILY [facility]; Protocol Stop: 10/30/21 10:01 Last Admin: 10/29/21 10:26 Dose: 250 mg Cefuroxime Axetil (Cefuroxime 250 Mg Tab) 250 mg PO Q12HR [facility]; Protocol Stop: 10/31/21 22:01 Last Admin: 10/29/21 21:42 Dose: 250 mg Hydrochlorothiazide (Hydrochlorothiazide 12.5 Mg Cap) 12.5 mg PO QDAY [facility] Last Admin: 10/29/21 10:25 Dose: 12.5 mg Lisinopril (Lisinopril 10 Mg Tab) 10 mg PO QDAY [facility] Last Admin: 10/29/21 10:26 Dose: 10 mg Nortriptyline HCl (Nortriptyline 10 Mg Cap) 10 mg PO [facility] Last Admin: 10/29/21 21:42 Dose: 10 mg Pantoprazole Sodium (Pantoprazole 40 Mg Tab) 40 mg PO QDAY [facility] Last Admin: 10/29/21 10:25 Dose: 40 mg Potassium Chloride (Potassium Chloride Er 20 Meq Tab) 20 meq PO QDAY [facility] Last Admin: 10/29/21 10:26 Dose: 20 meq Trazodone HCl (Trazodone 100 Mg Tab) 100 mg PO QHS [facility] Last Admin: 10/29/21 21:41 Dose: 100 mg Valproic Acid (Valproic Acid 250 Mg/5 Ml Oral Liqd) 125 mg PO DAILY [facility] Last Admin: 10/29/21 10:26 Dose: 125 mg Ziprasidone (Ziprasidone Mesylate 20 Mg Vial) 10 mg IM Q6H PRN PRN Reason: Agitation Results - Results Labs/Vitals: Laboratory Last Values WBC 15.5 K/mm3 (4.5-11.0) H 10/27/21 10:52 RBC 4.86 M/mm3 (3.65-5.03) 10/27/21 10:52 Hgb 14.7 gm/dl (11.8-15.2) 10/27/21 10:52 Hct 43.6 % (35.5-45.6) 10/27/21 10:52 MCV 90 fl (84-94) 10/27/21 10:52 MCH 30 pg (28-32) 10/27/21 10:52 MCHC 34 % (32-34) 10/27/21 10:52 RDW 13.5 % (13.2-15.2) 10/27/21 10:52 Plt Count 240 K/mm3 (140-440) 10/27/21 10:52 Lymph % (Auto) 9.4 % (13.4-35.0) L 10/27/21 10:52 [place] % (Auto) 9.8 % (0.0-7.3) H 10/27/21 10:52 Eos % (Auto) 0.0 % (0.0-4.3) 10/27/21 10:52 Baso % (Auto) 0.2 % (0.0-1.8) 10/27/21 10:52 Lymph # (Auto) 1.5 K/mm3 (1.2-5.4) 10/27/21 10:52 [place] # (Auto) 1.5 K/mm3 (0.0-0.8) H 10/27/21 10:52 Eos # (Auto) 0.0 K/mm3 (0.0-0.4) 10/27/21 10:52 Baso # (Auto) 0.0 K/mm3 (0.0-0.1) 10/27/21 10:52 Seg Neutrophils % 80.6 % (40.0-70.0) H 10/27/21 10:52 Seg Neutrophils # 12.5 K/mm3 (1.8-7.7) H 10/27/21 10:52 Sodium 141 mmol/L (137-145) 10/27/21 10:52 Potassium 3.2 mmol/L (3.6-5.0) L 10/27/21 10:52 Chloride 102.4 mmol/L (98-107) 10/27/21 10:52 Carbon Dioxide 16 mmol/L (22-30) L 10/27/21 10:52 Anion Gap 26 mmol/L 10/27/21 10:52 BUN 13 mg/dL (9-20) 10/27/21 10:52 Creatinine 1.0 mg/dL (0.8-1.3) 10/27/21 10:52 Estimated GFR > 60 ml/min 10/27/21 10:52 BUN/Creatinine Ratio 13 % 10/27/21 10:52 Glucose 172 mg/dL (75-100) H 10/27/21 10:52 POC Glucose 191 mg/dL (70-105) H 10/30/21 07:32 Hemoglobin A1c 8.1 % (4-6) H 10/27/21 10:52 Calcium 10.0 mg/dL (8.4-10.2) 10/27/21 10:52 Total Bilirubin 0.90 mg/dL (0.1-1.2) 10/27/21 10:52 AST 20 units/L (5-40) 10/27/21 10:52 ALT 24 units/L (7-56) 10/27/21 10:52 Alkaline Phosphatase 95 units/L (35-129) 10/27/21 10:52 Total Protein 7.5 g/dL (6.3-8.2) 10/27/21 10:52 Albumin 3.4 g/dL (3.9-5) L 10/27/21 10:52 Albumin/Globulin Ratio 0.8 % 10/27/21 10:52 Triglycerides 135 mg/dL (2-149) 10/27/21 10:52 Cholesterol 177 mg/dL (50-199) 10/27/21 10:52 LDL Cholesterol Direct 119 mg/dL (50-130) 10/27/21 10:52 HDL Cholesterol 34 mg/dL (40-59) L 10/27/21 10:52 Cholesterol/HDL Ratio 5.20 % 10/27/21 10:52 TSH 1.720 mlU/mL (0.270-4.200) 10/27/21 10:52 Last Vital Signs Temp 99.6 F 10/29/21 20:02 Pulse 97 H 10/29/21 20:02 Resp 20 10/29/21 20:02 BP 161/85 10/29/21 20:02 Pulse Ox 88 10/29/21 20:02
[2021-10-30] MEDS: VALPROIC ACID 250 MG/5 ML ORAL LIQD PO SCH (11:19)
[2021-10-30] MEDS: AZITHROMYCIN 250 MG TAB PO SCH (11:20)
[2021-10-30] MEDS: POTASSIUM CHLORIDE ER 20 MEQ TAB PO SCH (11:20)
[2021-10-30] MEDS: hydroCHLOROthiazide 12.5 MG CAP PO SCH (11:20)
[2021-10-30] MEDS: PANTOPRAZOLE 40 MG TAB PO SCH (11:20)
[2021-10-30] MEDS: LISINOPRIL 10 MG TAB PO SCH (11:20)
[2021-10-30] MEDS: NORTRIPTYLINE 10 MG CAP PO SCH (21:19)
[2021-10-30] MEDS: traZODone 100 MG TAB PO SCH (21:19)
--- NOTE | 2021-10-31 09:10 | Progress Note ---
Subjective Date of service: 10/31/21 Principal diagnosis: Dementia w/Bheavioral Disturbance Subjective Comment: 10/28/21: The patient was seen today. The patient is confused. Per nurse, he slept through the night. No aggressive behaviors reported. 10/29/21: The patient was seen resting in bed with eyes closed. The patient did not want to talk. Per nurse, " pt is alert and oriented to person, calm but resistive with taking medication and eating, he took his medication with encouragement in apple sauce, he was able to consumed one cup of juice, one cup of pudding, and one cup of apple sauce overnight, he rested well, slept through the night." 10/30/21: The patient was seen this morning. He muttering words. The patient continues to be confused. Per nurse, "Pt received in bed awake. Pleaded with the typewriter operator automatic to take him "out of this place." Oriented that he is in the hospital and doctor will determine when when he will discharge. Denies pain SI or HI. No acute distress observed and none reported." 10/31/21: The patient was seen resting in bed this morning. The patient opened his eyes to see the provider but was nonverbal. Per nurse, "Patient is AOX1, can be irritable and resistive. Refuses to eat or drink. States that anything in his mouth does not taste good. No reported pain and no other needs expressed at this time." REVIEW OF SYSTEMS Unable to assess MENTAL STATUS EXAMINATION Unable to assess Assessment (1) Schizophrenia Treatment Plan Patient admitted for inpatient psychiatric evaluation, medication adjustment and close monitoring The patient's behavior, mood, sleep and appetite will be closely monitored. Patient enrolled in individual and group therapeutic sessions and encouraged to attend. Patient provided with a safe and structured environment. Patient's physical health needs will be addressed by the Hospitalist. Hospitalist Consulted Labs including CBC, CMP, Lipid profile and Hemoglobin A1C levels ordered for baseline reference Social Assessment will be completed and the Sewing Machine Operator Paper Bags will work with patient and family to ensure a suitable and safe disposition Medication adjustment will be made as clinically indicated Continue Valproic 125mg po daily yesterday No changes made today Usual Wellness Orthodox/Preservation: - Start Trazodone 50 mg po QHS & 50 mg po QHS PRN between 10 PM & 2 AM for insomnia - Start Melatonin 5 mg po QHS to promote circadian rhythm The patient agreed on the treatment plan, understood the risk, benefit, alternative treatment, potential consequence of no treatment, and gave informed consent. Estimated days:4 Post hospital care: primary care provider, psychiatric provider Case staffed with Dr. Alvarado Medications and Allergies Medications and Allergies Allergies Allergy/AdvReac Type Severity Reaction Status Date / Time No Known Drug Allergies Allergy Unknown Verified 10/25/21 20:31 Home Medications Medication Instructions Recorded Confirmed Last Taken Type Benazepril/Hydrochlorothiazide 10 - 12.5 mg PO DAILY 10/25/21 10/25/21 Unknown History [Lotensin Hct 10-12.5 mg Tablet] Nortriptyline HCl 10 mg PO HS 10/25/21 10/25/21 Unknown History Pantoprazole [Protonix] 40 mg PO QDAY 10/25/21 10/25/21 Unknown History Potassium Chloride [K-Dur] 20 meq PO QDAY 10/25/21 10/25/21 Unknown History Azithromycin [Zithromax] 250 mg PO UNK 10/26/21 10/26/21 Unknown History Cefdinir 300 mg PO BID MDD DISPENSE 14 10/26/21 10/26/21 Unknown History CAPSULE Active Meds: Active Medications Cefuroxime Axetil (Cefuroxime 250 Mg Tab) 250 mg PO Q12HR [facility]; Protocol Stop: 10/31/21 22:01 Last Admin: 10/30/21 21:19 Dose: 250 mg Hydrochlorothiazide (Hydrochlorothiazide 12.5 Mg Cap) 12.5 mg PO QDAY [facility] Last Admin: 10/30/21 11:20 Dose: 12.5 mg Lisinopril (Lisinopril 10 Mg Tab) 10 mg PO QDAY [facility] Last Admin: 10/30/21 11:20 Dose: 10 mg Nortriptyline HCl (Nortriptyline 10 Mg Cap) 10 mg PO [facility] Last Admin: 10/30/21 21:19 Dose: 10 mg Pantoprazole Sodium (Pantoprazole 40 Mg Tab) 40 mg PO QDAY [facility] Last Admin: 10/30/21 11:20 Dose: 40 mg Potassium Chloride (Potassium Chloride Er 20 Meq Tab) 20 meq PO QDAY [facility] Last Admin: 10/30/21 11:20 Dose: 20 meq Trazodone HCl (Trazodone 100 Mg Tab) 100 mg PO QHS [facility] Last Admin: 10/30/21 21:19 Dose: 100 mg Valproic Acid (Valproic Acid 250 Mg/5 Ml Oral Liqd) 125 mg PO DAILY [facility] Last Admin: 10/30/21 11:19 Dose: 125 mg Ziprasidone (Ziprasidone Mesylate 20 Mg Vial) 10 mg IM Q6H PRN PRN Reason: Agitation Results - Results Labs/Vitals: Laboratory Last Values WBC 15.5 K/mm3 (4.5-11.0) H 10/27/21 10:52 RBC 4.86 M/mm3 (3.65-5.03) 10/27/21 10:52 Hgb 14.7 gm/dl (11.8-15.2) 10/27/21 10:52 Hct 43.6 % (35.5-45.6) 10/27/21 10:52 MCV 90 fl (84-94) 10/27/21 10:52 MCH 30 pg (28-32) 10/27/21 10:52 MCHC 34 % (32-34) 10/27/21 10:52 RDW 13.5 % (13.2-15.2) 10/27/21 10:52 Plt Count 240 K/mm3 (140-440) 10/27/21 10:52 Lymph % (Auto) 9.4 % (13.4-35.0) L 10/27/21 10:52 [place] % (Auto) 9.8 % (0.0-7.3) H 10/27/21 10:52 Eos % (Auto) 0.0 % (0.0-4.3) 10/27/21 10:52 Baso % (Auto) 0.2 % (0.0-1.8) 10/27/21 10:52 Lymph # (Auto) 1.5 K/mm3 (1.2-5.4) 10/27/21 10:52 [place] # (Auto) 1.5 K/mm3 (0.0-0.8) H 10/27/21 10:52 Eos # (Auto) 0.0 K/mm3 (0.0-0.4) 10/27/21 10:52 Baso # (Auto) 0.0 K/mm3 (0.0-0.1) 10/27/21 10:52 Seg Neutrophils % 80.6 % (40.0-70.0) H 10/27/21 10:52 Seg Neutrophils # 12.5 K/mm3 (1.8-7.7) H 10/27/21 10:52 Sodium 141 mmol/L (137-145) 10/27/21 10:52 Potassium 3.2 mmol/L (3.6-5.0) L 10/27/21 10:52 Chloride 102.4 mmol/L (98-107) 10/27/21 10:52 Carbon Dioxide 16 mmol/L (22-30) L 10/27/21 10:52 Anion Gap 26 mmol/L 10/27/21 10:52 BUN 13 mg/dL (9-20) 10/27/21 10:52 Creatinine 1.0 mg/dL (0.8-1.3) 10/27/21 10:52 Estimated GFR > 60 ml/min 10/27/21 10:52 BUN/Creatinine Ratio 13 % 10/27/21 10:52 Glucose 172 mg/dL (75-100) H 10/27/21 10:52 POC Glucose 157 mg/dL (70-105) H 10/31/21 08:43 Hemoglobin A1c 8.1 % (4-6) H 10/27/21 10:52 Calcium 10.0 mg/dL (8.4-10.2) 10/27/21 10:52 Total Bilirubin 0.90 mg/dL (0.1-1.2) 10/27/21 10:52 AST 20 units/L (5-40) 10/27/21 10:52 ALT 24 units/L (7-56) 10/27/21 10:52 Alkaline Phosphatase 95 units/L (35-129) 10/27/21 10:52 Total Protein 7.5 g/dL (6.3-8.2) 10/27/21 10:52 Albumin 3.4 g/dL (3.9-5) L 10/27/21 10:52 Albumin/Globulin Ratio 0.8 % 10/27/21 10:52 Triglycerides 135 mg/dL (2-149) 10/27/21 10:52 Cholesterol 177 mg/dL (50-199) 10/27/21 10:52 LDL Cholesterol Direct 119 mg/dL (50-130) 10/27/21 10:52 HDL Cholesterol 34 mg/dL (40-59) L 10/27/21 10:52 Cholesterol/HDL Ratio 5.20 % 10/27/21 10:52 TSH 1.720 mlU/mL (0.270-4.200) 10/27/21 10:52 Last Vital Signs Temp 97.4 F L 10/30/21 09:26 Pulse 89 10/30/21 11:20 Resp 18 10/30/21 09:26 BP 167/98 10/30/21 11:20 Pulse Ox 96 10/30/21 09:26
[2021-10-31] MEDS: PANTOPRAZOLE 40 MG TAB PO SCH (11:10)
[2021-10-31] MEDS: POTASSIUM CHLORIDE ER 20 MEQ TAB PO SCH (11:10)
[2021-10-31] MEDS: hydroCHLOROthiazide 12.5 MG CAP PO SCH (11:10)
[2021-10-31] MEDS: LISINOPRIL 10 MG TAB PO SCH (11:11)
[2021-10-31] MEDS: VALPROIC ACID 250 MG/5 ML ORAL LIQD PO SCH (11:54)
[2021-10-31] MEDS: traZODone 100 MG TAB PO SCH (22:20)
[2021-10-31] MEDS: NORTRIPTYLINE 10 MG CAP PO SCH (22:20)
--- NOTE | 2021-11-01 08:05 | Progress Note ---
Subjective Date of service: 11/01/21 Principal diagnosis: Dementia w/Bheavioral Disturbance Subjective Comment: 10/28/21: The patient was seen today. The patient is confused. Per nurse, he slept through the night. No aggressive behaviors reported. 10/29/21: The patient was seen resting in bed with eyes closed. The patient did not want to talk. Per nurse, " pt is alert and oriented to person, calm but resistive with taking medication and eating, he took his medication with encouragement in apple sauce, he was able to consumed one cup of juice, one cup of pudding, and one cup of apple sauce overnight, he rested well, slept through the night." 10/30/21: The patient was seen this morning. He muttering words. The patient continues to be confused. Per nurse, "Pt received in bed awake. Pleaded with the investigative writer to take him "out of this place." Oriented that he is in the hospital and doctor will determine when when he will discharge. Denies pain SI or HI. No acute distress observed and none reported." 10/31/21: The patient was seen resting in bed this morning. The patient opened his eyes to see the provider but was nonverbal. Per nurse, "Patient is AOX1, can be irritable and resistive. Refuses to eat or drink. States that anything in his mouth does not taste good. No reported pain and no other needs expressed at this time." 11/01/21 :The patient was seen resting in bed this morning. He states "hello, I don't want you to do anything for me, I just want to lay here." per, nurse " Last evening the patient spent in his bed. He was awake but would not interact with staff other than to refuse some of his care. He continues to refuse most food. Nurse was able to get him to eat 1 pudding. He refused anything else. Labs were ordered for the patient since he is refusing food and fluids. REVIEW OF SYSTEMS Unable to assess MENTAL STATUS EXAMINATION Unable to assess Assessment (1) Schizophrenia Treatment Plan Patient admitted for inpatient psychiatric evaluation, medication adjustment and close monitoring The patient's behavior, mood, sleep and appetite will be closely monitored. Patient enrolled in individual and group therapeutic sessions and encouraged to attend. Patient provided with a safe and structured environment. Patient's physical health needs will be addressed by the Hospitalist. Hospitalist Consulted Labs including CBC, CMP, Lipid profile and Hemoglobin A1C levels ordered for baseline reference Social Assessment will be completed and the Communications Assistant will work with patient and family to ensure a suitable and safe disposition Medication adjustment will be made as clinically indicated Continue Valproic 125mg po daily yesterday No changes made today Usual Wellness Sikh/Preservation: - Start Trazodone 50 mg po QHS & 50 mg po QHS PRN between 10 PM & 2 AM for insomnia - Start Melatonin 5 mg po QHS to promote circadian rhythm The patient agreed on the treatment plan, understood the risk, benefit, alternative treatment, potential consequence of no treatment, and gave informed consent. Estimated days:3 Post hospital care: primary care provider, psychiatric provider Case staffed with Dr. Alvarado Medications and Allergies Medications and Allergies Allergies Allergy/AdvReac Type Severity Reaction Status Date / Time No Known Drug Allergies Allergy Unknown Verified 10/25/21 20:31 Home Medications Medication Instructions Recorded Confirmed Last Taken Type Benazepril/Hydrochlorothiazide 10 - 12.5 mg PO DAILY 10/25/21 10/25/21 Unknown History [Lotensin Hct 10-12.5 mg Tablet] Nortriptyline HCl 10 mg PO HS 10/25/21 10/25/21 Unknown History Pantoprazole [Protonix] 40 mg PO QDAY 10/25/21 10/25/21 Unknown History Potassium Chloride [K-Dur] 20 meq PO QDAY 10/25/21 10/25/21 Unknown History Azithromycin [Zithromax] 250 mg PO UNK 10/26/21 10/26/21 Unknown History Cefdinir 300 mg PO BID MDD DISPENSE 14 10/26/21 10/26/21 Unknown History CAPSULE Active Meds: Active Medications Hydrochlorothiazide (Hydrochlorothiazide 12.5 Mg Cap) 12.5 mg PO QDAY [facility] Last Admin: 10/31/21 11:10 Dose: Not Given Lisinopril (Lisinopril 10 Mg Tab) 10 mg PO QDAY [facility] Last Admin: 10/31/21 11:11 Dose: Not Given Nortriptyline HCl (Nortriptyline 10 Mg Cap) 10 mg PO [facility] Last Admin: 10/31/21 22:20 Dose: 10 mg Pantoprazole Sodium (Pantoprazole 40 Mg Tab) 40 mg PO QDAY [facility] Last Admin: 10/31/21 11:10 Dose: 40 mg Potassium Chloride (Potassium Chloride Er 20 Meq Tab) 20 meq PO QDAY [facility] Last Admin: 10/31/21 11:10 Dose: Not Given Trazodone HCl (Trazodone 100 Mg Tab) 100 mg PO QHS [facility] Last Admin: 10/31/21 22:20 Dose: 100 mg Valproic Acid (Valproic Acid 250 Mg/5 Ml Oral Liqd) 125 mg PO DAILY [facility] Last Admin: 10/31/21 11:54 Dose: Not Given Ziprasidone (Ziprasidone Mesylate 20 Mg Vial) 10 mg IM Q6H PRN PRN Reason: Agitation Results - Results Labs/Vitals: Laboratory Last Values WBC 15.5 K/mm3 (4.5-11.0) H 10/27/21 10:52 RBC 4.86 M/mm3 (3.65-5.03) 10/27/21 10:52 Hgb 14.7 gm/dl (11.8-15.2) 10/27/21 10:52 Hct 43.6 % (35.5-45.6) 10/27/21 10:52 MCV 90 fl (84-94) 10/27/21 10:52 MCH 30 pg (28-32) 10/27/21 10:52 MCHC 34 % (32-34) 10/27/21 10:52 RDW 13.5 % (13.2-15.2) 10/27/21 10:52 Plt Count 240 K/mm3 (140-440) 10/27/21 10:52 Lymph % (Auto) 9.4 % (13.4-35.0) L 10/27/21 10:52 [place] % (Auto) 9.8 % (0.0-7.3) H 10/27/21 10:52 Eos % (Auto) 0.0 % (0.0-4.3) 10/27/21 10:52 Baso % (Auto) 0.2 % (0.0-1.8) 10/27/21 10:52 Lymph # (Auto) 1.5 K/mm3 (1.2-5.4) 10/27/21 10:52 [place] # (Auto) 1.5 K/mm3 (0.0-0.8) H 10/27/21 10:52 Eos # (Auto) 0.0 K/mm3 (0.0-0.4) 10/27/21 10:52 Baso # (Auto) 0.0 K/mm3 (0.0-0.1) 10/27/21 10:52 Seg Neutrophils % 80.6 % (40.0-70.0) H 10/27/21 10:52 Seg Neutrophils # 12.5 K/mm3 (1.8-7.7) H 10/27/21 10:52 Sodium 141 mmol/L (137-145) 10/27/21 10:52 Potassium 3.2 mmol/L (3.6-5.0) L 10/27/21 10:52 Chloride 102.4 mmol/L (98-107) 10/27/21 10:52 Carbon Dioxide 16 mmol/L (22-30) L 10/27/21 10:52 Anion Gap 26 mmol/L 10/27/21 10:52 BUN 13 mg/dL (9-20) 10/27/21 10:52 Creatinine 1.0 mg/dL (0.8-1.3) 10/27/21 10:52 Estimated GFR > 60 ml/min 10/27/21 10:52 BUN/Creatinine Ratio 13 % 10/27/21 10:52 Glucose 172 mg/dL (75-100) H 10/27/21 10:52 POC Glucose 162 mg/dL (70-105) H 11/01/21 07:08 Hemoglobin A1c 8.1 % (4-6) H 10/27/21 10:52 Calcium 10.0 mg/dL (8.4-10.2) 10/27/21 10:52 Total Bilirubin 0.90 mg/dL (0.1-1.2) 10/27/21 10:52 AST 20 units/L (5-40) 10/27/21 10:52 ALT 24 units/L (7-56) 10/27/21 10:52 Alkaline Phosphatase 95 units/L (35-129) 10/27/21 10:52 Total Protein 7.5 g/dL (6.3-8.2) 10/27/21 10:52 Albumin 3.4 g/dL (3.9-5) L 10/27/21 10:52 Albumin/Globulin Ratio 0.8 % 10/27/21 10:52 Triglycerides 135 mg/dL (2-149) 10/27/21 10:52 Cholesterol 177 mg/dL (50-199) 10/27/21 10:52 LDL Cholesterol Direct 119 mg/dL (50-130) 10/27/21 10:52 HDL Cholesterol 34 mg/dL (40-59) L 10/27/21 10:52 Cholesterol/HDL Ratio 5.20 % 10/27/21 10:52 TSH 1.720 mlU/mL (0.270-4.200) 10/27/21 10:52 Last Vital Signs Temp 98.5 F 10/31/21 20:01 Pulse 94 H 10/31/21 20:01 Resp 17 10/31/21 20:01 BP 96/72 10/31/21 20:01 Pulse Ox 98 10/31/21 20:01
[2021-11-01] MEDS: VALPROIC ACID 250 MG/5 ML ORAL LIQD PO SCH ×2 (13:15→13:25)
[2021-11-01] MEDS: PANTOPRAZOLE 40 MG TAB PO SCH (13:16)
[2021-11-01] MEDS: LISINOPRIL 10 MG TAB PO SCH (13:16)
[2021-11-01] MEDS: POTASSIUM CHLORIDE ER 20 MEQ TAB PO SCH (13:17)
[2021-11-01] MEDS: hydroCHLOROthiazide 12.5 MG CAP PO SCH (20:11)
[2021-11-01] MEDS: NORTRIPTYLINE 10 MG CAP PO SCH (21:40)
[2021-11-01] MEDS: traZODone 100 MG TAB PO SCH (21:40)
--- NOTE | 2021-11-02 09:13 | Progress Note ---
Subjective Date of service: 11/02/21 Principal diagnosis: Dementia w/Bheavioral Disturbance Subjective Comment: 10/28/21: The patient was seen today. The patient is confused. Per nurse, he slept through the night. No aggressive behaviors reported. 10/29/21: The patient was seen resting in bed with eyes closed. The patient did not want to talk. Per nurse, " pt is alert and oriented to person, calm but resistive with taking medication and eating, he took his medication with encouragement in apple sauce, he was able to consumed one cup of juice, one cup of pudding, and one cup of apple sauce overnight, he rested well, slept through the night." 10/30/21: The patient was seen this morning. He muttering words. The patient continues to be confused. Per nurse, "Pt received in bed awake. Pleaded with the board writer to take him "out of this place." Oriented that he is in the hospital and doctor will determine when when he will discharge. Denies pain SI or HI. No acute distress observed and none reported." 10/31/21: The patient was seen resting in bed this morning. The patient opened his eyes to see the provider but was nonverbal. Per nurse, "Patient is AOX1, can be irritable and resistive. Refuses to eat or drink. States that anything in his mouth does not taste good. No reported pain and no other needs expressed at this time." 11/01/21 :The patient was seen resting in bed this morning. He states "hello, I don't want you to do anything for me, I just want to lay here." per, nurse " Last evening the patient spent in his bed. He was awake but would not interact with staff other than to refuse some of his care. He continues to refuse most food. Nurse was able to get him to eat 1 pudding. He refused anything else. Labs were ordered for the patient since he is refusing food and fluids. 11/02/21: The patient was seen resting in bed, and easily aroused. The patient stares and mumbles. Per nurse , " pt stays in bed most of the time, none ambulatory, resistive with care, took medication with encouragement, poor appetite, had one cup of pudding, and one cup of apple juice, slept all night, no distress noted." REVIEW OF SYSTEMS Unable to assess MENTAL STATUS EXAMINATION Unable to assess Assessment (1) Schizophrenia Treatment Plan Patient admitted for inpatient psychiatric evaluation, medication adjustment and close monitoring The patient's behavior, mood, sleep and appetite will be closely monitored. Patient enrolled in individual and group therapeutic sessions and encouraged to attend. Patient provided with a safe and structured environment. Patient's physical health needs will be addressed by the Hospitalist. Hospitalist Consulted Labs including CBC, CMP, Lipid profile and Hemoglobin A1C levels ordered for baseline reference Social Assessment will be completed and the Retirement Consultant will work with patient and family to ensure a suitable and safe disposition Medication adjustment will be made as clinically indicated Continue Valproic 125mg po daily yesterday No changes made today Usual Wellness Advent/Preservation: - Start Trazodone 50 mg po QHS & 50 mg po QHS PRN between 10 PM & 2 AM for insomnia - Start Melatonin 5 mg po QHS to promote circadian rhythm The patient agreed on the treatment plan, understood the risk, benefit, alternative treatment, potential consequence of no treatment, and gave informed consent. Estimated days:3 Post hospital care: primary care provider, psychiatric provider Case staffed with Dr. Alvarado Medications and Allergies Medications and Allergies Allergies Allergy/AdvReac Type Severity Reaction Status Date / Time No Known Drug Allergies Allergy Unknown Verified 10/25/21 20:31 Home Medications Medication Instructions Recorded Confirmed Last Taken Type Benazepril/Hydrochlorothiazide 10 - 12.5 mg PO DAILY 10/25/21 10/25/21 Unknown History [Lotensin Hct 10-12.5 mg Tablet] Nortriptyline HCl 10 mg PO HS 10/25/21 10/25/21 Unknown History Pantoprazole [Protonix] 40 mg PO QDAY 10/25/21 10/25/21 Unknown History Potassium Chloride [K-Dur] 20 meq PO QDAY 10/25/21 10/25/21 Unknown History Azithromycin [Zithromax] 250 mg PO UNK 10/26/21 10/26/21 Unknown History Cefdinir 300 mg PO BID MDD DISPENSE 14 10/26/21 10/26/21 Unknown History CAPSULE Active Meds: Active Medications Hydrochlorothiazide (Hydrochlorothiazide 12.5 Mg Cap) 12.5 mg PO QDAY [facility] Last Admin: 11/01/21 20:11 Dose: Not Given Lisinopril (Lisinopril 10 Mg Tab) 10 mg PO QDAY [facility] Last Admin: 11/01/21 13:16 Dose: 10 mg Nortriptyline HCl (Nortriptyline 10 Mg Cap) 10 mg PO [facility] Last Admin: 11/01/21 21:40 Dose: 10 mg Pantoprazole Sodium (Pantoprazole 40 Mg Tab) 40 mg PO QDAY [facility] Last Admin: 11/01/21 13:16 Dose: 40 mg Potassium Chloride (Potassium Chloride Er 20 Meq Tab) 20 meq PO QDAY [facility] Last Admin: 11/01/21 13:17 Dose: 20 meq Trazodone HCl (Trazodone 100 Mg Tab) 100 mg PO QHS [facility] Last Admin: 11/01/21 21:40 Dose: 100 mg Valproic Acid (Valproic Acid 250 Mg/5 Ml Oral Liqd) 125 mg PO DAILY [facility] Last Admin: 11/01/21 13:25 Dose: Not Given Ziprasidone (Ziprasidone Mesylate 20 Mg Vial) 10 mg IM Q6H PRN PRN Reason: Agitation Results - Results Labs/Vitals: Laboratory Last Values WBC 15.5 K/mm3 (4.5-11.0) H 10/27/21 10:52 RBC 4.86 M/mm3 (3.65-5.03) 10/27/21 10:52 Hgb 14.7 gm/dl (11.8-15.2) 10/27/21 10:52 Hct 43.6 % (35.5-45.6) 10/27/21 10:52 MCV 90 fl (84-94) 10/27/21 10:52 MCH 30 pg (28-32) 10/27/21 10:52 MCHC 34 % (32-34) 10/27/21 10:52 RDW 13.5 % (13.2-15.2) 10/27/21 10:52 Plt Count 240 K/mm3 (140-440) 10/27/21 10:52 Lymph % (Auto) 9.4 % (13.4-35.0) L 10/27/21 10:52 [place] % (Auto) 9.8 % (0.0-7.3) H 10/27/21 10:52 Eos % (Auto) 0.0 % (0.0-4.3) 10/27/21 10:52 Baso % (Auto) 0.2 % (0.0-1.8) 10/27/21 10:52 Lymph # (Auto) 1.5 K/mm3 (1.2-5.4) 10/27/21 10:52 [place] # (Auto) 1.5 K/mm3 (0.0-0.8) H 10/27/21 10:52 Eos # (Auto) 0.0 K/mm3 (0.0-0.4) 10/27/21 10:52 Baso # (Auto) 0.0 K/mm3 (0.0-0.1) 10/27/21 10:52 Seg Neutrophils % 80.6 % (40.0-70.0) H 10/27/21 10:52 Seg Neutrophils # 12.5 K/mm3 (1.8-7.7) H 10/27/21 10:52 Sodium 141 mmol/L (137-145) 10/27/21 10:52 Potassium 3.2 mmol/L (3.6-5.0) L 10/27/21 10:52 Chloride 102.4 mmol/L (98-107) 10/27/21 10:52 Carbon Dioxide 16 mmol/L (22-30) L 10/27/21 10:52 Anion Gap 26 mmol/L 10/27/21 10:52 BUN 13 mg/dL (9-20) 10/27/21 10:52 Creatinine 1.0 mg/dL (0.8-1.3) 10/27/21 10:52 Estimated GFR > 60 ml/min 10/27/21 10:52 BUN/Creatinine Ratio 13 % 10/27/21 10:52 Glucose 172 mg/dL (75-100) H 10/27/21 10:52 POC Glucose 147 mg/dL (70-105) H 11/02/21 06:19 Hemoglobin A1c 8.1 % (4-6) H 10/27/21 10:52 Calcium 10.0 mg/dL (8.4-10.2) 10/27/21 10:52 Total Bilirubin 0.90 mg/dL (0.1-1.2) 10/27/21 10:52 AST 20 units/L (5-40) 10/27/21 10:52 ALT 24 units/L (7-56) 10/27/21 10:52 Alkaline Phosphatase 95 units/L (35-129) 10/27/21 10:52 Total Protein 7.5 g/dL (6.3-8.2) 10/27/21 10:52 Albumin 3.4 g/dL (3.9-5) L 10/27/21 10:52 Albumin/Globulin Ratio 0.8 % 10/27/21 10:52 Triglycerides 135 mg/dL (2-149) 10/27/21 10:52 Cholesterol 177 mg/dL (50-199) 10/27/21 10:52 LDL Cholesterol Direct 119 mg/dL (50-130) 10/27/21 10:52 HDL Cholesterol 34 mg/dL (40-59) L 10/27/21 10:52 Cholesterol/HDL Ratio 5.20 % 10/27/21 10:52 TSH 1.720 mlU/mL (0.270-4.200) 10/27/21 10:52 Last Vital Signs Temp 98.5 F 11/01/21 07:55 Pulse 92 H 11/01/21 13:16 Resp 18 11/01/21 07:55 BP 110/89 11/01/21 13:16 Pulse Ox 91 11/01/21 07:55
[2021-11-02] MEDS: VALPROIC ACID 250 MG/5 ML ORAL LIQD PO SCH (10:39)
[2021-11-02] MEDS: hydroCHLOROthiazide 12.5 MG CAP PO SCH (10:39)
[2021-11-02] MEDS: LISINOPRIL 10 MG TAB PO SCH (10:40)
[2021-11-02] MEDS: PANTOPRAZOLE 40 MG TAB PO SCH (10:40)
[2021-11-02] MEDS: POTASSIUM CHLORIDE ER 20 MEQ TAB PO SCH (10:40)
--- NOTE | 2021-11-02 13:41 | Progress Note ---
Assessment and Plan - Patient Problems (1) Vascular dementia with behavioral disturbance Current Visit: Yes Status: Acute Plan to address problem: Verbal prompting, verbal redirection, benzodiazepine therapy as clinically indicated. Attempt made to notify family regarding home hospice care. (2) Pneumonia Current Visit: Yes Status: Acute Plan to address problem: Resolved (3) Cerebral atherosclerosis Current Visit: Yes Status: Acute Plan to address problem: Risk factor reduction therapy, antiplatelet therapy as clinically indicated. (4) Hypertension Current Visit: Yes Status: Acute Qualifiers: Hypertension type: primary hypertension Qualified Code(s): I10 - Essential (primary) hypertension Plan to address problem: Monitor blood pressure every shift, continue medical management (5) GERD (gastroesophageal reflux disease) Current Visit: Yes Status: Acute Qualifiers: Esophagitis presence: without esophagitis Qualified Code(s): K21.9 - Gastro-esophageal reflux disease without esophagitis Plan to address problem: PPI therapy, supportive care (6) Depression Current Visit: Yes Status: Acute Plan to address problem: Continue medical management, behavior change counseling. (7) Advance care planning Current Visit: Yes Status: Acute Plan to address problem: Disease education conducted, care plan discussed, diagnoses discussed, prognosis discussed, patient is full code. +30 minutes. History Interval history: 76 YO Male with Vascular Dementia with Behavioral Disturbance, Cerebral Atherosclerosis, Shzizophrenia, AFUA, Depression admitted to [facility] for psychiatric stabilization. Consult placed by Dr. Weldon for medical management. Patient seen and evaluated in his room. Patient resting comfo rtably. Nursing staff acknowledges diminished oral intake. Patient is at baseline level of cognition and function. Patient exhibits symptoms of worsening dementia. Hospitalist Physical - Constitutional Vitals: Temp Pulse Resp BP Pulse Ox 97.6 F 92 H 20 162/86 96 11/01/21 21:00 11/02/21 10:15 11/01/21 21:00 11/02/21 10:18 11/02/21 10:15 General appearance: Present: no acute distress - EENT Eyes: Present: PERRL ENT: hearing decreased - Neck Neck: Present: supple - Respiratory Respiratory effort: normal Respiratory: bilateral: CTA - Cardiovascular Rhythm: regular Heart Sounds: Present: S1 & S2 - Extremities Extremities: no ischemia Peripheral Pulses: within normal limits - Abdominal General gastrointestinal: soft, non-tender, non-distended - Integumentary Integumentary: Present: clear, dry - Neurologic Neurologic: CNII-XII intact Results - Labs CBC & Chem 7: 10/27/21 10:52 10/27/21 10:52 Labs: Laboratory Last Values WBC 15.5 K/mm3 (4.5-11.0) H 10/27/21 10:52 RBC 4.86 M/mm3 (3.65-5.03) 10/27/21 10:52 Hgb 14.7 gm/dl (11.8-15.2) 10/27/21 10:52 Hct 43.6 % (35.5-45.6) 10/27/21 10:52 MCV 90 fl (84-94) 10/27/21 10:52 MCH 30 pg (28-32) 10/27/21 10:52 MCHC 34 % (32-34) 10/27/21 10:52 RDW 13.5 % (13.2-15.2) 10/27/21 10:52 Plt Count 240 K/mm3 (140-440) 10/27/21 10:52 Lymph % (Auto) 9.4 % (13.4-35.0) L 10/27/21 10:52 [place] % (Auto) 9.8 % (0.0-7.3) H 10/27/21 10:52 Eos % (Auto) 0.0 % (0.0-4.3) 10/27/21 10:52 Baso % (Auto) 0.2 % (0.0-1.8) 10/27/21 10:52 Lymph # (Auto) 1.5 K/mm3 (1.2-5.4) 10/27/21 10:52 [place] # (Auto) 1.5 K/mm3 (0.0-0.8) H 10/27/21 10:52 Eos # (Auto) 0.0 K/mm3 (0.0-0.4) 10/27/21 10:52 Baso # (Auto) 0.0 K/mm3 (0.0-0.1) 10/27/21 10:52 Seg Neutrophils % 80.6 % (40.0-70.0) H 10/27/21 10:52 Seg Neutrophils # 12.5 K/mm3 (1.8-7.7) H 10/27/21 10:52 Sodium 141 mmol/L (137-145) 10/27/21 10:52 Potassium 3.2 mmol/L (3.6-5.0) L 10/27/21 10:52 Chloride 102.4 mmol/L (98-107) 10/27/21 10:52 Carbon Dioxide 16 mmol/L (22-30) L 10/27/21 10:52 Anion Gap 26 mmol/L 10/27/21 10:52 BUN 13 mg/dL (9-20) 10/27/21 10:52 Creatinine 1.0 mg/dL (0.8-1.3) 10/27/21 10:52 Estimated GFR > 60 ml/min 10/27/21 10:52 BUN/Creatinine Ratio 13 % 10/27/21 10:52 Glucose 172 mg/dL (75-100) H 10/27/21 10:52 POC Glucose 147 mg/dL (70-105) H 11/02/21 06:19 Hemoglobin A1c 8.1 % (4-6) H 10/27/21 10:52 Calcium 10.0 mg/dL (8.4-10.2) 10/27/21 10:52 Total Bilirubin 0.90 mg/dL (0.1-1.2) 10/27/21 10:52 AST 20 units/L (5-40) 10/27/21 10:52 ALT 24 units/L (7-56) 10/27/21 10:52 Alkaline Phosphatase 95 units/L (35-129) 10/27/21 10:52 Total Protein 7.5 g/dL (6.3-8.2) 10/27/21 10:52 Albumin 3.4 g/dL (3.9-5) L 10/27/21 10:52 Albumin/Globulin Ratio 0.8 % 10/27/21 10:52 Triglycerides 135 mg/dL (2-149) 10/27/21 10:52 Cholesterol 177 mg/dL (50-199) 10/27/21 10:52 LDL Cholesterol Direct 119 mg/dL (50-130) 10/27/21 10:52 HDL Cholesterol 34 mg/dL (40-59) L 10/27/21 10:52 Cholesterol/HDL Ratio 5.20 % 10/27/21 10:52 TSH 1.720 mlU/mL (0.270-4.200) 10/27/21 10:52 Alexander/IV: Voiding Method Diaper Active Medications - Current Medications Current Medications: Generic Name Dose Route Start Last Admin Trade Name Freq PRN Reason Stop Dose Admin Hydrochlorothiazide 12.5 mg 10/26/21 10:00 11/02/21 10:39 Hydrochlorothiazide 12.5 Mg Cap PO Not Given QDAY ZULEYMA Lisinopril 10 mg 10/26/21 10:00 11/02/21 10:40 Lisinopril 10 Mg Tab PO Not Given QDAY ZULEYMA Nortriptyline HCl 10 mg 10/26/21 22:00 11/01/21 21:40 Nortriptyline 10 Mg Cap PO 10 mg HS ZULEYMA Administration Pantoprazole Sodium 40 mg 10/26/21 10:00 11/02/21 10:40 Pantoprazole 40 Mg Tab PO Not Given QDAY ZULEYMA Potassium Chloride 20 meq 10/26/21 10:00 11/02/21 10:40 Potassium Chloride Er 20 Meq Tab PO Not Given QDAY ZULEYMA Trazodone HCl 100 mg 10/25/21 22:00 11/01/21 21:40 Trazodone 100 Mg Tab PO 100 mg QHS ZULEYMA Administration Valproic Acid 125 mg 10/26/21 10:00 11/02/21 10:39 Valproic Acid 250 Mg/5 Ml Oral Liqd PO Not Given DAILY ZULEYMA Ziprasidone 10 mg 10/25/21 20:40 Ziprasidone Mesylate 20 Mg Vial IM Q6H PRN Agitation Nutrition/Malnutrition Assess - Dietary Evaluation Nutrition/Malnutrition Findings: Nutrition Notes Start: 11/01/21 15:32 Freq: Status: Active Protocol: Document 11/01/21 15:32 WENDY (Rec: 11/01/21 15:57 WENDY [id number]) Nutrition Notes Need for Assessment generated from: MD Order Initial or Follow up Assessment Other Pertinent Diagnosis Schizophrenia. Current Diet Regular Diet (since B 10/26). Labs/Tests 11/01: HbA1c 8.1. Pertinent Medications 11/01: Nutritionally unremarkable. 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 Weight Status Appropriate Subjective/Other Information RD consult for poor appetite assessment. Pt refered having poor appetite INFORMATION SERVICES MANAGER. Pt seems to tolerate better apple sauce and pudding. Dietary supplements recomended and ordered. Percent of energy/protein needs met: Prescribed Regular Diet provides for energy/protein needs (2,289 Kcal/89 g) during LOS; additionally, Dietary Supplements will compensate for possible Poor PO intake of meals with 720 Kcal and 24 g of protein. Burn Absent Trauma Absent GI Symptoms None Food Allergy No Skin Integrity/Comment Clear, warm, dry. Current % PO Negligible Minimum of two criteria No #1 Nutrition Diagnosis Inadequate protein-energy intake Etiology Uncertain. As Evidenced by Signs and Symptoms Pt refusing to eat or drink, except for occasional apple sauce and pudding, MD request for poor oral intake evaluation. Is patient on ventilator? No Is Patient Ambulatory and/or Out of Bed Yes REE-([facility]-ambulatory/OOB) [ 1931.826 NUTR.MSJOOB] Kcal/Kg value to use for calculation 20 Approximate Energy Requirements Using 1488 kcal/Kg Calculation Used for Recommendations Kcal/kg Additional Notes Protein: 1-1.2 g/Kg; 74-89 g/ day. Fluids: 1 ml/Kcal, or as per MD. Nutrition Intervention Change Diet Order: Continue Regular Diet. Add Supplement/Snack (indicate name/kcal 8 fl oz Ensure clear; TID. /protein ) Provides kCal: 720 Provides Protein (gm) 24 Goal #1 Compensate, through dietary supplementation, for possible poor or insufficient PO intake of meals during LOS. Follow-Up By: 11/08/21 Additional Comments Continue monitoring food tolerance, %PO intake of meals , and BM.
[2021-11-02 20:20] LABS: Basophils % (Auto) 0.4 % (0.0-1.8); Eosinophils # (Auto) 0.2 K/mm3 (0.0-0.4); Eosinophils % (Auto) 2.9 % (0.0-4.3); Hematocrit 41.9 % (35.5-45.6); Hemoglobin 13.8 gm/dl (11.8-15.2); Lymphocytes # (Auto) 1.7 K/mm3 (1.2-5.4); Mean Corpuscular HGB Conc 33 % (32-34); Mean Corpuscular Volume 91 fl (84-94); Monocytes # (Auto) 0.6 K/mm3 (0.0-0.8); Monocytes % (Auto) 9.1 % (0.0-7.3); Platelet Count 396 K/mm3 (140-440); Red Blood Count 4.58 M/mm3 (3.65-5.03); Red Cell Distribution Width 13.5 % (13.2-15.2)
[2021-11-02 20:39] LABS: BUN/Creatinine Ratio 28; Blood Urea Nitrogen 28 mg/dL (9-20); Calcium 9.3 mg/dL (8.4-10.2); Hemolysis Index 0
[2021-11-02] MEDS: traZODone 100 MG TAB PO SCH (21:09)
[2021-11-02] MEDS: NORTRIPTYLINE 10 MG CAP PO SCH (21:09)
--- NOTE | 2021-11-03 08:56 | Discharge Summary ---
Providers - Providers Date of Admission: 10/25/21 22:44 Date of discharge: 11/03/21 Attending physician: DEBRA ADAN MD 10/25/21 20:34 Consult to Physician [CONS] Routine Comment: Consulting Provider: ARTURO LANCASTER Physician Instructions: Reason For Exam: New admission consult 10/26/21 08:35 Physical Therapy Evaluation and Treat [CONS] Routine Comment: Reason For Exam: eval and treat Mode of Transport?: Wheelchair 10/31/21 11:28 Consult to Dietitian/Nutrition [CONS] Routine Physician Instructions: Reason For Exam: Reason for Consult: Poor oral intake Primary care physician: MS SQL DBA Hospitalization Reason for admission: agitation Admitting Diagnosis: F02.81 - DEMENTIA IN OTH DISEASES CLASSD ELSWHR [facility] Hospital course: The patient was provided inpatient psychiatric treatment with safe and supportive environment, group/individual therapy, psychiatric medication, medication adjustment, adverse effect monitor, medical evaluation, medical treatment, social service assessment, social support meeting, placement assessment and psycho-education. The patients mood, cognition, behavior, motivation, compliance to treatment and appreciation on family/social support are improved and stabilized. At the time of discharge, the patient had no suicidal ideas, no homicidal ideas, no aggressive thoughts, no endangering behavior and no debilitating adverse effects. The patient agreed on the treatment plan, understood the risk, benefit, alternative treatment, potential consequence of no treatment, and gave informed consent. Progress Note: 10/28/21: The patient was seen today. The patient is confused. Per nurse, he slept through the night. No aggressive behaviors reported. 10/29/21: The patient was seen resting in bed with eyes closed. The patient did not want to talk. Per nurse, " pt is alert and oriented to person, calm but resistive with taking medication and eating, he took his medication with encouragement in apple sauce, he was able to consumed one cup of juice, one cup of pudding, and one cup of apple sauce overnight, he rested well, slept through the night." 10/30/21: The patient was seen this morning. He muttering words. The patient continues to be confused. Per nurse, "Pt received in bed awake. Pleaded with the sba underwriter to take him "out of this place." Oriented that he is in the hospital and doctor will determine when when he will discharge. Denies pain SI or HI. No acute distress observed and none reported." 10/31/21: The patient was seen resting in bed this morning. The patient opened his eyes to see the provider but was nonverbal. Per nurse, "Patient is AOX1, can be irritable and resistive. Refuses to eat or drink. States that anything in his mouth does not taste good. No reported pain and no other needs expressed at this time." 11/01/21 :The patient was seen resting in bed this morning. He states "hello, I don't want you to do anything for me, I just want to lay here." per, nurse " Last evening the patient spent in his bed. He was awake but would not interact with staff other than to refuse some of his care. He continues to refuse most food. Nurse was able to get him to eat 1 pudding. He refused anything else. Labs were ordered for the patient since he is refusing food and fluids. 11/02/21: The patient was seen resting in bed, and easily aroused. The patient stares and mumbles. Per nurse , " pt stays in bed most of the time, none ambulatory, resistive with care, took medication with encouragement, poor appetite, had one cup of pudding, and one cup of apple juice, slept all night, no distress noted." Disposition: 30 STILL A PATIENT Allergies/Adverse Reactions: Allergies No Known Drug Allergies Allergy (Verified 10/25/21 20:31) Unknown Vital Signs: Last Vital Signs Temp 99.2 F 11/02/21 20:00 Pulse 85 11/02/21 20:00 Resp 16 11/02/21 20:00 BP 117/64 11/02/21 20:00 Pulse Ox 98 11/02/21 20:00 Last Lab: Laboratory Last Values WBC 7.1 K/mm3 (4.5-11.0) 11/02/21 19: RBC 4.58 M/mm3 (3.65-5.03) 11/02/21 19: Hgb 13.8 gm/dl (11.8-15.2) 11/02/21 19: Hct 41.9 % (35.5-45.6) 11/02/21 19: MCV 91 fl (84-94) 11/02/21 19: MCH 30 pg (28-32) 11/02/21 19: MCHC 33 % (32-34) 11/02/21 19: RDW 13.5 % (13.2-15.2) 11/02/21 19: Plt Count 396 K/mm3 (140-440) 11/02/21 19: Lymph % (Auto) 24.0 % (13.4-35.0) 11/02/21: [place] % (Auto) 9.1 % (0.0-7.3) H 11/02/21 19: Eos % (Auto) 2.9 % (0.0-4.3) 11/02/21: Baso % (Auto) 0.4 % (0.0-1.8) 11/02/21: Lymph # (Auto) 1.7 K/mm3 (1.2-5.4) 11/02/21: [place] # (Auto) 0.6 K/mm3 (0.0-0.8) 11/02/21 19: Eos # (Auto) 0.2 K/mm3 (0.0-0.4) 11/02/21: Baso # (Auto) 0.0 K/mm3 (0.0-0.1) 11/02/21: Seg Neutrophils % 63.6 % (40.0-70.0) 11/02/21 19: Seg Neutrophils # 4.5 K/mm3 (1.8-7.7) 11/02/21 19: Sodium 153 mmol/L (137-145) H 11/02/21 19: Potassium 3.3 mmol/L (3.6-5.0) L 11/02/21 19: Chloride 109.3 mmol/L (98-107) H 11/02/21 19: Carbon Dioxide 30 mmol/L (22-30) 11/02/21 19: Anion Gap 17 mmol/L 11/02/21 19: BUN 28 mg/dL (9-20) H 11/02/21 19: Creatinine 1.0 mg/dL (0.8-1.3) 11/02/21 19: Estimated GFR > 60 ml/min 11/02/21 19:23 BUN/Creatinine Ratio 28 % 11/02/21 19:23 Glucose 155 mg/dL (75-100) H 11/02/21 19:23 POC Glucose 147 mg/dL (70-105) H 11/02/21 20:26 Hemoglobin A1c 8.1 % (4-6) H 10/27/21 10:52 Calcium 9.3 mg/dL (8.4-10.2) 11/02/21 19:23 Total Bilirubin 0.90 mg/dL (0.1-1.2) 10/27/21 10:52 AST 20 units/L (5-40) 10/27/21 10:52 ALT 24 units/L (7-56) 10/27/21 10:52 Alkaline Phosphatase 95 units/L (35-129) 10/27/21 10:52 Total Protein 7.5 g/dL (6.3-8.2) 10/27/21 10:52 Albumin 3.4 g/dL (3.9-5) L 10/27/21 10:52 Albumin/Globulin Ratio 0.8 % 10/27/21 10:52 Triglycerides 135 mg/dL (2-149) 10/27/21 10:52 Cholesterol 177 mg/dL (50-199) 10/27/21 10:52 LDL Cholesterol Direct 119 mg/dL (50-130) 10/27/21 10:52 HDL Cholesterol 34 mg/dL (40-59) L 10/27/21 10:52 Cholesterol/HDL Ratio 5.20 % 10/27/21 10:52 TSH 1.720 mlU/mL (0.270-4.200) 10/27/21 10:52 Core Measure Documentation - Palliative Care Palliative Care/ Comfort Measures: Not Applicable - Core Measures Any of the following diagnoses?: none - VTE Discharge Requirements Deep Vein Thrombosis/Pulmonary Embolism Present on Admission: No Exam - Constitutional Vitals: Temp Pulse Resp BP Pulse Ox 99.2 F 85 16 117/64 98 11/02/21 20:00 11/02/21 20:00 11/02/21 20:00 11/02/21 20:00 11/02/21 20:00 Plan Activity: advance as tolerated Weight Bearing Status: Weight Bear as Tolerated Care Plan Goals: Maintain good and stable mental health. Plan of Treatment: The patient should be compliant with medications, not to use drugs and not to drink alcohol.The patient understands that if suicidal ideas, homicidal ideas, or any endangering thoughts/behavior arise, they should immediately seek for emergent assistance including but not limited to crisis hot line and emergency room. Follow up with outpatient Psychiatrist and PCP within 7 - 14 days of discharge. Follow up with: PRIMARY CARE,MD [Primary Care Provider] - 7 Days
[2021-11-03] MEDS: hydroCHLOROthiazide 12.5 MG CAP PO SCH (10:07)
[2021-11-03] MEDS: LISINOPRIL 10 MG TAB PO SCH (10:07)
[2021-11-03] MEDS: POTASSIUM CHLORIDE ER 20 MEQ TAB PO SCH (10:07)
[2021-11-03] MEDS: PANTOPRAZOLE 40 MG TAB PO SCH (10:07)
--- NOTE | 2021-11-03 10:18 | Progress Note ---
Assessment and Plan - Patient Problems (1) Vascular dementia with behavioral disturbance Current Visit: Yes Status: Acute Plan to address problem: Verbal prompting, verbal redirection, benzodiazepine therapy as clinically indicated. Attempt made to notify family regarding home hospice care. (2) Pneumonia Current Visit: Yes Status: Acute Plan to address problem: Resolved (3) Cerebral atherosclerosis Current Visit: Yes Status: Acute Plan to address problem: Risk factor reduction therapy, antiplatelet therapy as clinically indicated. (4) Hypertension Current Visit: Yes Status: Acute Qualifiers: Hypertension type: primary hypertension Qualified Code(s): I10 - Essential (primary) hypertension Plan to address problem: Monitor blood pressure every shift, continue medical management (5) GERD (gastroesophageal reflux disease) Current Visit: Yes Status: Acute Qualifiers: Esophagitis presence: without esophagitis Qualified Code(s): K21.9 - Gastro-esophageal reflux disease without esophagitis Plan to address problem: PPI therapy, supportive care (6) Depression Current Visit: Yes Status: Acute Plan to address problem: Continue medical management, behavior change counseling. (7) Advance care planning Current Visit: Yes Status: Acute Plan to address problem: Disease education conducted, care plan discussed, diagnoses discussed, prognosis discussed, patient is full code. +30 minutes. History Interval history: 76 YO Male with Vascular Dementia with Behavioral Disturbance, Cerebral Atherosclerosis, Shzizophrenia, AFUA, Depression admitted to [facility] psych unit for psychiatric stabilization. Consult placed by Dr. Weldon for medical management. Patient seen and evaluated in his room. Patient resting comfo rtably. Nursing staff acknowledges diminished oral intake. Patient is at baseline level of cognition and function. Patient exhibits symptoms of worsening dementia. Hospitalist Physical - Constitutional Vitals: Temp Pulse Resp BP Pulse Ox 97.9 F 85 18 134/68 97 11/03/21 08:38 11/03/21 10:07 11/03/21 08:38 11/03/21 10:07 11/03/21 08:38 General appearance: Present: no acute distress - EENT Eyes: Present: PERRL ENT: hearing decreased - Neck Neck: Present: supple - Respiratory Respiratory: bilateral: CTA - Cardiovascular Rhythm: regular Heart Sounds: Present: S1 & S2 - Extremities Extremities: no ischemia Peripheral Pulses: within normal limits - Abdominal General gastrointestinal: soft, non-tender, non-distended - Psychiatric Psychiatric: agitated - Neurologic Neurologic: CNII-XII intact, no focal deficits, moves all extremities, no gait normal Results - Labs CBC & Chem 7: 11/02/21 19:23 11/02/21 19: Labs: Laboratory Last Values WBC 7.1 K/mm3 (4.5-11.0) 11/02/21 19: RBC 4.58 M/mm3 (3.65-5.03) 11/02/21: Hgb 13.8 gm/dl (11.8-15.2) 11/02/21: Hct 41.9 % (35.5-45.6) 11/02/21 19: MCV 91 fl (84-94) 11/02/21: MCH 30 pg (28-32) 11/02/21: MCHC 33 % (32-34) 11/02/21: RDW 13.5 % (13.2-15.2) 11/02/21: Plt Count 396 K/mm3 (140-440) 11/02/21: Lymph % (Auto) 24.0 % (13.4-35.0) 11/02/21 19: [place] % (Auto) 9.1 % (0.0-7.3) H 11/02/21: Eos % (Auto) 2.9 % (0.0-4.3) 11/02/21: Baso % (Auto) 0.4 % (0.0-1.8) 11/02/21: Lymph # (Auto) 1.7 K/mm3 (1.2-5.4) 11/02/21: [place] # (Auto) 0.6 K/mm3 (0.0-0.8) 11/02/21: Eos # (Auto) 0.2 K/mm3 (0.0-0.4) 11/02/21 Baso # (Auto) 0.0 K/mm3 (0.0-0.1) 11/02/21: Seg Neutrophils % 63.6 % (40.0-70.0) 11/02/21: Seg Neutrophils # 4.5 K/mm3 (1.8-7.7) 01/12/22 19:23 Sodium 153 mmol/L (137-145) H 11/02/21 19:23 Potassium 3.3 mmol/L (3.6-5.0) L 11/02/21 19:23 Chloride 109.3 mmol/L (98-107) H 11/02/21 19:23 Carbon Dioxide 30 mmol/L (22-30) 11/02/21 19:23 Anion Gap 17 mmol/L 11/02/21 19:23 BUN 28 mg/dL (9-20) H 11/02/21 19:23 Creatinine 1.0 mg/dL (0.8-1.3) 11/02/21 19:23 Estimated GFR > 60 ml/min 11/02/21 19:23 BUN/Creatinine Ratio 28 % 11/02/21 19:23 Glucose 155 mg/dL (75-100) H 11/02/21 19:23 POC Glucose 147 mg/dL (70-105) H 11/02/21 20:26 Hemoglobin A1c 8.1 % (4-6) H 10/27/21 10:52 Calcium 9.3 mg/dL (8.4-10.2) 11/02/21 19:23 Total Bilirubin 0.90 mg/dL (0.1-1.2) 10/27/21 10:52 AST 20 units/L (5-40) 10/27/21 10:52 ALT 24 units/L (7-56) 10/27/21 10:52 Alkaline Phosphatase 95 units/L (35-129) 10/27/21 10:52 Total Protein 7.5 g/dL (6.3-8.2) 10/27/21 10:52 Albumin 3.4 g/dL (3.9-5) L 10/27/21 10:52 Albumin/Globulin Ratio 0.8 % 10/27/21 10:52 Triglycerides 135 mg/dL (2-149) 10/27/21 10:52 Cholesterol 177 mg/dL (50-199) 10/27/21 10:52 LDL Cholesterol Direct 119 mg/dL (50-130) 10/27/21 10:52 HDL Cholesterol 34 mg/dL (40-59) L 10/27/21 10:52 Cholesterol/HDL Ratio 5.20 % 10/27/21 10:52 TSH 1.720 mlU/mL (0.270-4.200) 10/27/21 10:52 Alexander/IV: Voiding Method Incontinent Active Medications - Current Medications Current Medications: Generic Name Dose Route Start Last Admin Trade Name Freq PRN Reason Stop Dose Admin Hydrochlorothiazide 12.5 mg 10/26/21 10:00 11/03/21 10:07 Hydrochlorothiazide 12.5 Mg Cap PO 12.5 mg QDAY ZULEYMA Administration Lisinopril 10 mg 10/26/21 10:00 11/03/21 10:07 Lisinopril 10 Mg Tab PO 10 mg QDAY ZULEYMA Administration Nortriptyline HCl 10 mg 10/26/21 22:00 11/02/21 21:09 Nortriptyline 10 Mg Cap PO 10 mg HS ZULEYMA Administration Pantoprazole Sodium 40 mg 10/26/21 10:00 11/03/21 10:07 Pantoprazole 40 Mg Tab PO 40 mg QDAY ZULEYMA Administration Potassium Chloride 20 meq 10/26/21 10:00 11/03/21 10:07 Potassium Chloride Er 20 Meq Tab PO 20 meq QDAY ZULEYMA Administration Nutrition/Malnutrition Assess - Dietary Evaluation Nutrition/Malnutrition Findings: Nutrition Notes Start: 11/01/21 15:32 Freq: Status: Active Protocol: Document 11/01/21 15:32 WENDY (Rec: 11/01/21 15:57 WENDY [id number]) Nutrition Notes Need for Assessment generated from: MD Order Initial or Follow up Assessment Other Pertinent Diagnosis Schizophrenia. Current Diet Regular Diet (since B 10/26). Labs/Tests 11/01: HbA1c 8.1. Pertinent Medications 11/01: Nutritionally unremarkable. 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 Weight Status Appropriate Subjective/Other Information RD consult for poor appetite assessment. 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 Pt seems to tolerate better apple sauce and pudding. Dietary supplements recomended and ordered. Percent of energy/protein needs met: Prescribed Regular Diet provides for energy/protein needs (2,289 Kcal/89 g) during LOS; additionally, Dietary Supplements will compensate for possible Poor PO intake of meals with 720 Kcal and 24 g of protein. Burn Absent Trauma Absent GI Symptoms None Food Allergy No Skin Integrity/Comment Clear, warm, dry. Current % PO Negligible Minimum of two criteria No #1 Nutrition Diagnosis Inadequate protein-energy intake Etiology Uncertain. As Evidenced by Signs and Symptoms Pt refusing to eat or drink, except for occasional apple sauce and pudding, MD request for poor oral intake evaluation. Is patient on ventilator? No Is Patient Ambulatory and/or Out of Bed Yes REE-([facility]-ambulatory/OOB) [ 1931.826 NUTR.MSJOOB] Kcal/Kg value to use for calculation 20 Approximate Energy Requirements Using 1488 kcal/Kg Calculation Used for Recommendations Kcal/kg Additional Notes Protein: 1-1.2 g/Kg; 74-89 g/ day. Fluids: 1 ml/Kcal, or as per MD. Nutrition Intervention Change Diet Order: Continue Regular Diet. Add Supplement/Snack (indicate name/kcal 8 fl oz Ensure clear; TID. /protein ) Provides kCal: 720 Provides Protein (gm) 24 Goal #1 Compensate, through dietary supplementation, for possible poor or insufficient PO intake of meals during LOS. Follow-Up By: 11/08/21 Additional Comments Continue monitoring food tolerance, %PO intake of meals , and BM.
--- NOTE | 2021-11-03 13:06 | XRay Report ---
CHEST 1 VIEW INDICATION: placement. COMPARISON: None FINDINGS: Support devices: None. Heart: Within normal limits. Lungs/Pleura: No acute air space or interstitial disease. Additional findings: None. IMPRESSION: No acute findings. Signer Name: Tano Lopez Jr, MD Signed: 11/03/2021 1:02 PM Workstation Name: [id number]
[2021-11-03] MEDS: NORTRIPTYLINE 10 MG CAP PO SCH (21:26)
--- NOTE | 2021-11-04 08:34 | Progress Note ---
Subjective Date of service: 11/04/21 Principal diagnosis: Dementia w/Bheavioral Disturbance Subjective Comment: The patient was seen today. He is confused. He is irritable. He says "I don't need you to come in here any more. I don't need anything from you." The patient is rambling. Staff says the patient slept a total of three hours, resistive to care and has poor appetite. REVIEW OF SYSTEMS Unable to assess MENTAL STATUS EXAMINATION Unable to assess Assessment (1) Schizophrenia Treatment Plan Patient admitted for inpatient psychiatric evaluation, medication adjustment and close monitoring The patient's behavior, mood, sleep and appetite will be closely monitored. Patient enrolled in individual and group therapeutic sessions and encouraged to attend. Patient provided with a safe and structured environment. Patient's physical health needs will be addressed by the Hospitalist. Hospitalist Consulted Labs including CBC, CMP, Lipid profile and Hemoglobin A1C levels ordered for baseline reference Social Assessment will be completed and the Truck Caterer will work with patient and family to ensure a suitable and safe disposition Medication adjustment will be made as clinically indicated Start Valproic 125mg po daily yesterday Remeron 7.5mg po qhs to induce sleep and increase appetite Usual Wellness Jehovah'S Witness/Preservation: - Start Trazodone 50 mg po QHS & 50 mg po QHS PRN between 10 PM & 2 AM for insomnia - Start Melatonin 5 mg po QHS to promote circadian rhythm The patient agreed on the treatment plan, understood the risk, benefit, alternative treatment, potential consequence of no treatment, and gave informed consent. Estimated days:7 Post hospital care: primary care provider, psychiatric provider Case staffed with Dr. Alvarado Medications and Allergies Allergies Allergy/AdvReac Type Severity Reaction Status Date / Time No Known Drug Allergies Allergy Unknown Verified 10/25/21 20:31 Home Medications Medication Instructions Recorded Confirmed Last Taken Type Benazepril/Hydrochlorothiazide 10 - 12.5 mg PO DAILY 10/25/21 10/25/21 Unknown History [Lotensin Hct 10-12.5 mg Tablet] Nortriptyline HCl 10 mg PO HS 10/25/21 10/25/21 Unknown History Pantoprazole [Protonix TAB] 40 mg PO QDAY 10/25/21 10/25/21 Unknown History Potassium Chloride [K-Dur] 20 meq PO QDAY 10/25/21 10/25/21 Unknown History Azithromycin [Zithromax] 250 mg PO UNK 10/26/21 10/26/21 Unknown History Cefdinir 300 mg PO BID MDD DISPENSE 14 10/26/21 10/26/21 Unknown History CAPSULE hydroCHLOROthiazide [HCTZ] 12.5 mg PO QDAY capsule 11/03/21 Unknown Rx lisinopriL [Zestril TAB] 10 mg PO QDAY tablet 11/03/21 Unknown Rx Active Meds: Active Medications Hydrochlorothiazide (Hydrochlorothiazide 12.5 Mg Cap) 12.5 mg PO QDAY [facility] Last Admin: 11/03/21 10:07 Dose: 12.5 mg Lisinopril (Lisinopril 10 Mg Tab) 10 mg PO QDAY [facility] Last Admin: 11/03/21 10:07 Dose: 10 mg Nortriptyline HCl (Nortriptyline 10 Mg Cap) 10 mg PO HS [facility] Last Admin: 11/03/21 21:26 Dose: Not Given Pantoprazole Sodium (Pantoprazole 40 Mg Tab) 40 mg PO QDAY [facility] Last Admin: 11/03/21 10:07 Dose: 40 mg Potassium Chloride (Potassium Chloride Er 20 Meq Tab) 20 meq PO QDAY [facility] Last Admin: 11/03/21 10:07 Dose: 20 meq Results - Results Labs/Vitals: Laboratory Last Values WBC 7.1 K/mm3 (4.5-11.0) 11/02/21 19: RBC 4.58 M/mm3 (3.65-5.03) 11/02/21 19:23 Hgb 13.8 gm/dl (11.8-15.2) 11/02/21 19:23 Hct 41.9 % (35.5-45.6) 11/02/21 19:23 MCV 91 fl (84-94) 11/02/21 19:23 MCH 30 pg (28-32) 11/02/21 19: MCHC 33 % (32-34) 11/02/21 19:23 RDW 13.5 % (13.2-15.2) 11/02/21 19:23 Plt Count 396 K/mm3 (140-440) 11/02/21 19:23 Lymph % (Auto) 24.0 % (13.4-35.0) 11/02/21 19:23 [place] % (Auto) 9.1 % (0.0-7.3) H 11/02/21 19:23 Eos % (Auto) 2.9 % (0.0-4.3) 11/02/21 19:23 Baso % (Auto) 0.4 % (0.0-1.8) 11/02/21 19:23 Lymph # (Auto) 1.7 K/mm3 (1.2-5.4) 11/02/21 19: [place] # (Auto) 0.6 K/mm3 (0.0-0.8) 11/02/21 19: Eos # (Auto) 0.2 K/mm3 (0.0-0.4) 11/02/21 19: Baso # (Auto) 0.0 K/mm3 (0.0-0.1) 11/02/21 19:23 Seg Neutrophils % 63.6 % (40.0-70.0) 11/02/21 19: Seg Neutrophils # 4.5 K/mm3 (1.8-7.7) 11/02/21 19:23 Sodium 153 mmol/L (137-145) H 11/02/21 19:23 Potassium 3.3 mmol/L (3.6-5.0) L 11/02/21 19:23 Chloride 109.3 mmol/L (98-107) H 11/02/21 19:23 Carbon Dioxide 30 mmol/L (22-30) 11/02/21 19:23 Anion Gap 17 mmol/L 11/02/21 19:23 BUN 28 mg/dL (9-20) H 11/02/21 19:23 Creatinine 1.0 mg/dL (0.8-1.3) 11/02/21 19:23 Estimated GFR > 60 ml/min 11/02/21 19:23 BUN/Creatinine Ratio 28 % 11/02/21 19:23 Glucose 155 mg/dL (75-100) H 11/02/21 19:23 POC Glucose 150 mg/dL (70-105) H 11/03/21 20:16 Hemoglobin A1c 8.1 % (4-6) H 10/27/21 10:52 Calcium 9.3 mg/dL (8.4-10.2) 11/02/21 19:23 Total Bilirubin 0.90 mg/dL (0.1-1.2) 10/27/21 10:52 AST 20 units/L (5-40) 10/27/21 10:52 ALT 24 units/L (7-56) 10/27/21 10:52 Alkaline Phosphatase 95 units/L (35-129) 10/27/21 10:52 Total Protein 7.5 g/dL (6.3-8.2) 10/27/21 10:52 Albumin 3.4 g/dL (3.9-5) L 10/27/21 10:52 Albumin/Globulin Ratio 0.8 % 10/27/21 10:52 Triglycerides 135 mg/dL (2-149) 10/27/21 10:52 Cholesterol 177 mg/dL (50-199) 10/27/21 10:52 LDL Cholesterol Direct 119 mg/dL (50-130) 10/27/21 10:52 HDL Cholesterol 34 mg/dL (40-59) L 10/27/21 10:52 Cholesterol/HDL Ratio 5.20 % 10/27/21 10:52 TSH 1.720 mlU/mL (0.270-4.200) 10/27/21 10:52 Last Vital Signs Temp 97.8 F 11/03/21 19:52 Pulse 85 11/03/21 19:52 Resp 17 11/03/21 19:52 BP 113/82 11/03/21 19:52 Pulse Ox 99 11/03/21 19:52
[2021-11-04] MEDS: VALPROIC ACID 250 MG/5 ML ORAL LIQD PO SCH (10:13)
[2021-11-04] MEDS: POTASSIUM CHLORIDE ER 20 MEQ TAB PO SCH (10:14)
[2021-11-04] MEDS: hydroCHLOROthiazide 12.5 MG CAP PO SCH (10:14)
[2021-11-04] MEDS: LISINOPRIL 10 MG TAB PO SCH (10:15)
[2021-11-04] MEDS: PANTOPRAZOLE 40 MG TAB PO SCH (10:15)
--- NOTE | 2021-11-04 12:06 | Progress Note ---
Assessment and Plan - Patient Problems (1) Vascular dementia with behavioral disturbance Current Visit: Yes Status: Acute Plan to address problem: Verbal prompting, verbal redirection, benzodiazepine therapy as clinically indicated. Attempt made to notify family regarding home hospice care. (2) Pneumonia Current Visit: Yes Status: Acute Plan to address problem: Resolved (3) Cerebral atherosclerosis Current Visit: Yes Status: Acute Plan to address problem: Risk factor reduction therapy, antiplatelet therapy as clinically indicated. (4) Hypertension Current Visit: Yes Status: Acute Qualifiers: Hypertension type: primary hypertension Qualified Code(s): I10 - Essential (primary) hypertension Plan to address problem: Monitor blood pressure every shift, continue medical management (5) GERD (gastroesophageal reflux disease) Current Visit: Yes Status: Acute Qualifiers: Esophagitis presence: without esophagitis Qualified Code(s): K21.9 - Gastro-esophageal reflux disease without esophagitis Plan to address problem: PPI therapy, supportive care (6) Depression Current Visit: Yes Status: Acute Plan to address problem: Continue medical management, behavior change counseling. (7) Advance care planning Current Visit: Yes Status: Acute Plan to address problem: Disease education conducted, care plan discussed, diagnoses discussed, prognosis discussed, patient is full code. +30 minutes. History Interval history: 76 YO Male with Vascular Dementia with Behavioral Disturbance, Cerebral Atherosclerosis, Shzizophrenia, AFUA, Depression admitted to [facility] for psychiatric stabilization. Consult placed by Dr. Weldon for medical management. Patient seen and evaluated in his room. Patient resting comfo rtably. Nursing staff acknowledges diminished oral intake. Patient is at baseline level of cognition and function. Patient exhibits symptoms of worsening dementia. Hospitalist Physical - Constitutional Vitals: Temp Pulse Resp BP Pulse Ox 97.6 F 89 20 149/81 97 11/04/21 08:04 11/04/21 08:04 11/04/21 08:04 11/04/21 08:04 11/04/21 08:04 General appearance: Present: no acute distress - EENT Eyes: Present: PERRL ENT: hearing intact - Neck Neck: Present: supple - Respiratory Respiratory effort: normal Respiratory: bilateral: CTA - Cardiovascular Rhythm: regular Heart Sounds: Present: S1 & S2 - Extremities Extremities: no ischemia Peripheral Pulses: within normal limits - Abdominal General gastrointestinal: soft, non-tender, non-distended - Integumentary Integumentary: Present: clear, dry - Psychiatric Psychiatric: cooperative - Neurologic Neurologic: CNII-XII intact Results - Labs CBC & Chem 7: 11/02/21 19:23 11/02/21 19: Labs: Laboratory Last Values WBC 7.1 K/mm3 (4.5-11.0) 11/02/21 19: RBC 4.58 M/mm3 (3.65-5.03) 11/02/21: Hgb 13.8 gm/dl (11.8-15.2) 11/02/21 19: Hct 41.9 % (35.5-45.6) 11/02/21 19: MCV 91 fl (84-94) 11/02/21 19: MCH 30 pg (28-32) 11/02/21: MCHC 33 % (32-34) 11/02/21: RDW 13.5 % (13.2-15.2) 11/02/21: Plt Count 396 K/mm3 (140-440) 11/02/21 19: Lymph % (Auto) 24.0 % (13.4-35.0) 11/02/21 19: [place] % (Auto) 9.1 % (0.0-7.3) H 11/02/21: Eos % (Auto) 2.9 % (0.0-4.3) 11/02/21: Baso % (Auto) 0.4 % (0.0-1.8) 11/02/21: Lymph # (Auto) 1.7 K/mm3 (1.2-5.4) 11/02/21: [place] # (Auto) 0.6 K/mm3 (0.0-0.8) 11/02/21: Eos # (Auto) 0.2 K/mm3 (0.0-0.4) 11/02/21: Baso # (Auto) 0.0 K/mm3 (0.0-0.1) 11/02/21 19: Seg Neutrophils % 63.6 % (40.0-70.0) 11/02/21: Seg Neutrophils # 4.5 K/mm3 (1.8-7.7) 11/02/21 19:23 Sodium 153 mmol/L (137-145) H 11/02/21 19:23 Potassium 3.3 mmol/L (3.6-5.0) L 11/02/21 19:23 Chloride 109.3 mmol/L (98-107) H 11/02/21 19:23 Carbon Dioxide 30 mmol/L (22-30) 11/02/21 19:23 Anion Gap 17 mmol/L 11/02/21 19:23 BUN 28 mg/dL (9-20) H 11/02/21 19:23 Creatinine 1.0 mg/dL (0.8-1.3) 11/02/21 19:23 Estimated GFR > 60 ml/min 11/02/21 19:23 BUN/Creatinine Ratio 28 % 11/02/21 19:23 Glucose 155 mg/dL (75-100) H 11/02/21 19:23 POC Glucose 135 mg/dL (70-105) H 11/04/21 11:28 Hemoglobin A1c 8.1 % (4-6) H 10/27/21 10:52 Calcium 9.3 mg/dL (8.4-10.2) 11/02/21 19:23 Total Bilirubin 0.90 mg/dL (0.1-1.2) 10/27/21 10:52 AST 20 units/L (5-40) 10/27/21 10:52 ALT 24 units/L (7-56) 10/27/21 10:52 Alkaline Phosphatase 95 units/L (35-129) 10/27/21 10:52 Total Protein 7.5 g/dL (6.3-8.2) 10/27/21 10:52 Albumin 3.4 g/dL (3.9-5) L 10/27/21 10:52 Albumin/Globulin Ratio 0.8 % 10/27/21 10:52 Triglycerides 135 mg/dL (2-149) 10/27/21 10:52 Cholesterol 177 mg/dL (50-199) 10/27/21 10:52 LDL Cholesterol Direct 119 mg/dL (50-130) 10/27/21 10:52 HDL Cholesterol 34 mg/dL (40-59) L 10/27/21 10:52 Cholesterol/HDL Ratio 5.20 % 10/27/21 10:52 TSH 1.720 mlU/mL (0.270-4.200) 10/27/21 10:52 SARS-CoV-2 (PCR) Negative (Negative) 11/04/21 08:45 Alexander/IV: Voiding Method Diaper Active Medications - Current Medications Current Medications: Generic Name Dose Route Start Last Admin Trade Name Freq PRN Reason Stop Dose Admin Hydrochlorothiazide 12.5 mg 10/26/21 10:00 11/04/21 10:14 Hydrochlorothiazide 12.5 Mg Cap PO Not Given QDAY ZULYEMA Lisinopril 10 mg 10/26/21 10:00 11/04/21 10:15 Lisinopril 10 Mg Tab PO Not Given QDAY ZULEYMA Mirtazapine 7.5 mg 11/04/21 22:00 Mirtazapine 15 Mg Tab PO QHS ZULEYMA Nortriptyline HCl 10 mg 10/26/21 22:00 11/03/21 21:26 Nortriptyline 10 Mg Cap PO Not Given HS ZULEYMA Pantoprazole Sodium 40 mg 10/26/21 10:00 11/04/21 10:15 Pantoprazole 40 Mg Tab PO Not Given QDAY ZULEYMA Potassium Chloride 20 meq 10/26/21 10:00 11/04/21 10:14 Potassium Chloride Er 20 Meq Tab PO Not Given QDAY ZULEYMA Valproic Acid 125 mg 11/04/21 10:00 11/04/21 10:13 Valproic Acid 250 Mg/5 Ml Oral Liqd PO Not Given DAILY [facility] Nutrition/Malnutrition Assess - Dietary Evaluation Nutrition/Malnutrition Findings: Nutrition Notes Start: 11/01/21 15:32 Freq: Status: Active Protocol: Document 11/01/21 15:32 WENDY (Rec: 11/01/21 15:57 WENDY [id number]) Nutrition Notes Need for Assessment generated from: MD Order Initial or Follow up Assessment Other Pertinent Diagnosis Schizophrenia. Current Diet Regular Diet (since B 10/26). Labs/Tests 11/01: HbA1c 8.1. Pertinent Medications 11/01: Nutritionally unremarkable. 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 Weight Status Appropriate Subjective/Other Information RD consult for poor appetite assessment. 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 Pt seems to tolerate better apple sauce and pudding. Dietary supplements recomended and ordered. Percent of energy/protein needs met: Prescribed Regular Diet provides for energy/protein needs (2,289 Kcal/89 g) during LOS; additionally, Dietary Supplements will compensate for possible Poor PO intake of meals with 720 Kcal and 24 g of protein. Burn Absent Trauma Absent GI Symptoms None Food Allergy No Skin Integrity/Comment Clear, warm, dry. Current % PO Negligible Minimum of two criteria No #1 Nutrition Diagnosis Inadequate protein-energy intake Etiology Uncertain. As Evidenced by Signs and Symptoms Pt refusing to eat or drink, except for occasional apple sauce and pudding, MD request for poor oral intake evaluation. Is patient on ventilator? No Is Patient Ambulatory and/or Out of Bed Yes REE-([facility]-ambulatory/OOB) [ 1931.826 [id number]] Kcal/Kg value to use for calculation 20 Approximate Energy Requirements Using 1488 kcal/Kg Calculation Used for Recommendations Kcal/kg Additional Notes Protein: 1-1.2 g/Kg; 74-89 g/ day. Fluids: 1 ml/Kcal, or as per MD. Nutrition Intervention Change Diet Order: Continue Regular Diet. Add Supplement/Snack (indicate name/kcal 8 fl oz Ensure clear; TID. /protein ) Provides kCal: 720 Provides Protein (gm) 24 Goal #1 Compensate, through dietary supplementation, for possible poor or insufficient PO intake of meals during LOS. Follow-Up By: 11/08/21 Additional Comments Continue monitoring food tolerance, %PO intake of meals , and BM.
[2021-11-04] MEDS: NORTRIPTYLINE 10 MG CAP PO SCH (21:09)
[2021-11-04] MEDS: MIRTAZAPINE 15 MG TAB PO SCH (21:09)
--- NOTE | 2021-11-05 08:55 | Discharge Summary ---
Providers - Providers Date of Admission: 10/25/21 22:44 Date of discharge: 11/05/21 Attending physician: DEBRA ADAN MD 10/25/21 20:34 Consult to Physician [CONS] Routine Comment: Consulting Provider: ARTURO LANCASTER Physician Instructions: Reason For Exam: New admission consult 10/26/21 08:35 Physical Therapy Evaluation and Treat [CONS] Routine Comment: Reason For Exam: eval and treat Mode of Transport?: Wheelchair 10/31/21 11:28 Consult to Dietitian/Nutrition [CONS] Routine Physician Instructions: Reason For Exam: Reason for Consult: Poor oral intake 11/04/21 09:52 Speech Therapy Evaluation and Treat [CONS] Routine Reason For Exam: coughing when intaking of fluid Primary care physician: COMPLIANCE VICE PRESIDENT Hospitalization Reason for admission: agitation Admitting Diagnosis: F02.81 - DEMENTIA IN OTH DISEASES CLASSD ELSWHR W BEHAVIORAL DISTURB Condition: Stable Hospital course: The patient was provided inpatient psychiatric treatment with safe and supportive environment, group/individual therapy, psychiatric medication, medication adjustment, adverse effect monitor, medical evaluation, medical treatment, social service assessment, social support meeting, placement assessment and psycho-education. The patients mood, cognition, behavior, motivation, compliance to treatment and appreciation on family/social support are improved and stabilized. At the time of discharge, the patient had no suicidal ideas, no homicidal ideas, no aggressive thoughts, no endangering behavior and no debilitating adverse effects. The patient agreed on the treatment plan, understood the risk, benefit, alternative treatment, potential consequence of no treatment, and gave informed consent. 10/28/21: The patient was seen today. The patient is confused. Per nurse, he slept through the night. No aggressive behaviors reported. 10/29/21: The patient was seen resting in bed with eyes closed. The patient did not want to talk. Per nurse, " pt is alert and oriented to person, calm but resistive with taking medication and eating, he took his medication with encouragement in apple sauce, he was able to consumed one cup of juice, one cup of pudding, and one cup of apple sauce overnight, he rested well, slept through the night." 10/30/21: The patient was seen this morning. He muttering words. The patient continues to be confused. Per nurse, "Pt received in bed awake. Pleaded with the personal lines underwriter to take him "out of this place." Oriented that he is in the hospital and doctor will determine when when he will discharge. Denies pain SI or HI. No acute distress observed and none reported." 10/31/21: The patient was seen resting in bed this morning. The patient opened his eyes to see the provider but was nonverbal. Per nurse, "Patient is AOX1, can be irritable and resistive. Refuses to eat or drink. States that anything in his mouth does not taste good. No reported pain and no other needs expressed at this time." 11/01/21 :The patient was seen resting in bed this morning. He states "hello, I don't want you to do anything for me, I just want to lay here." per, nurse " Last evening the patient spent in his bed. He was awake but would not interact with staff other than to refuse some of his care. He continues to refuse most food. Nurse was able to get him to eat 1 pudding. He refused anything else. Labs were ordered for the patient since he is refusing food and fluids. 11/02/21: The patient was seen resting in bed, and easily aroused. The patient stares and mumbles. Per nurse , " pt stays in bed most of the time, none ambulatory, resistive with care, took medication with encouragement, poor appetite, had one cup of pudding, and one cup of apple juice, slept all night, no distress noted." 11/04 The patient was seen today. He is confused. He is irritable. He says "I don't need you to come in here any more. I don't need anything from you." The patient is rambling. Staff says the patient slept a total of three hours, resistive to care and has poor appetite. 11/05 The patient was seen today. He is sleeping, but easily arouses. He is confused, but calm. Disposition: 03 [facility] Time spent for discharge: 35 Allergies/Adverse Reactions: Allergies No Known Drug Allergies Allergy (Verified 10/25/21 20:31) Unknown Vital Signs: Last Vital Signs Temp 98.7 F 11/04/21 19:44 Pulse 98 H 11/04/21 22:00 Resp 20 11/04/21 22:00 BP 113/82 01/14/22 19:44 Pulse Ox 98 11/04/21 22:00 Last Lab: Laboratory Last Values WBC 7.1 K/mm3 (4.5-11.0) 11/02/21 19: RBC 4.58 M/mm3 (3.65-5.03) 11/02/21 19: Hgb 13.8 gm/dl (11.8-15.2) 11/02/21: Hct 41.9 % (35.5-45.6) 11/02/21 19: MCV 91 fl (84-94) 11/02/21 19: MCH 30 pg (28-32) 11/02/21: MCHC 33 % (32-34) 11/02/21: RDW 13.5 % (13.2-15.2) 11/02/21: Plt Count 396 K/mm3 (140-440) 11/02/21: Lymph % (Auto) 24.0 % (13.4-35.0) 11/02/21 19: [place]pp % (Auto) 9.1 % (0.0-7.3) H 11/02/21: Eos % (Auto) 2.9 % (0.0-4.3) 11/02/21: Baso % (Auto) 0.4 % (0.0-1.8) 11/02/21: Lymph # (Auto) 1.7 K/mm3 (1.2-5.4) 11/02/21: Tripp # (Auto) 0.6 K/mm3 (0.0-0.8) 11/02/21: Eos # (Auto) 0.2 K/mm3 (0.0-0.4) 11/02/21: Baso # (Auto) 0.0 K/mm3 (0.0-0.1) 11/02/21: Seg Neutrophils % 63.6 % (40.0-70.0) 11/02/21: Seg Neutrophils # 4.5 K/mm3 (1.8-7.7) 11/02/21 19: Sodium 153 mmol/L (137-145) H 11/02/21 19:23 Potassium 3.3 mmol/L (3.6-5.0) L 11/02/21 19:23 Chloride 109.3 mmol/L (98-107) H 11/02/21 19:23 Carbon Dioxide 30 mmol/L (22-30) 11/02/21 19:23 Anion Gap 17 mmol/L 11/02/21 19:23 BUN 28 mg/dL (9-20) H 11/02/21 19:23 Creatinine 1.0 mg/dL (0.8-1.3) 11/02/21 19:23 Estimated GFR > 60 ml/min 11/02/21 19:23 BUN/Creatinine Ratio 28 % 11/02/21 19:23 Glucose 155 mg/dL (75-100) H 11/02/21 19:23 POC Glucose 133 mg/dL (70-105) H 11/04/21 20:00 Hemoglobin A1c 8.1 % (4-6) H 10/27/21 10:52 Calcium 9.3 mg/dL (8.4-10.2) 11/02/21 19:23 Total Bilirubin 0.90 mg/dL (0.1-1.2) 10/27/21 10:52 AST 20 units/L (5-40) 10/27/21 10:52 ALT 24 units/L (7-56) 10/27/21 10:52 Alkaline Phosphatase 95 units/L (35-129) 10/27/21 10:52 Total Protein 7.5 g/dL (6.3-8.2) 10/27/21 10:52 Albumin 3.4 g/dL (3.9-5) L 10/27/21 10:52 Albumin/Globulin Ratio 0.8 % 10/27/21 10:52 Triglycerides 135 mg/dL (2-149) 10/27/21 10:52 Cholesterol 177 mg/dL (50-199) 10/27/21 10:52 LDL Cholesterol Direct 119 mg/dL (50-130) 10/27/21 10:52 HDL Cholesterol 34 mg/dL (40-59) L 10/27/21 10:52 Cholesterol/HDL Ratio 5.20 % 10/27/21 10:52 TSH 1.720 mlU/mL (0.270-4.200) 10/27/21 10:52 SARS-CoV-2 (PCR) Negative (Negative) 11/04/21 08:45 Core Measure Documentation - Palliative Care Palliative Care/ Comfort Measures: Not Applicable - Core Measures Any of the following diagnoses?: none Exam - Constitutional Vitals: Temp Pulse Resp BP Pulse Ox 98.7 F 98 H 20 113/82 98 11/04/21 19:44 11/04/21 22:00 11/04/21 22:00 11/04/21 19:44 11/04/21 22:00 General appearance: Present: no acute distress - EENT Eyes: Present: PERRL, EOM intact ENT: hearing intact, clear oral mucosa - Neck Neck: Present: supple, normal ROM - Respiratory Respiratory effort: normal Plan Activity: advance as tolerated Weight Bearing Status: Weight Bear as Tolerated Care Plan Goals: Maintain good and stable mental health. Plan of Treatment: The patient should be compliant with medications, not to use drugs and not to drink alcohol.The patient understands that if suicidal ideas, homicidal ideas, or any endangering thoughts/behavior arise, they should immediately seek for emergent assistance including but not limited to crisis hot line and emergency room. Follow up with outpatient Psychiatrist and PCP within 7 - 14 days of discharge. Assessment: Dementia with Behavioral Disturbance Follow up with: PRIMARY CARE, [Primary Care Provider] - 7 Days Prescriptions: Mirtazapine [Remeron 15mg TAB] 7.5 mg PO QHS #15 tablet VALPROIC ACID Liq [DepaKENE Liq] 125 mg PO DAILY #30 oral.liqd
[2021-11-05] MEDS: POTASSIUM CHLORIDE ER 20 MEQ TAB PO SCH (14:24)
[2021-11-05] MEDS: LISINOPRIL 10 MG TAB PO SCH (14:24)
[2021-11-05] MEDS: PANTOPRAZOLE 40 MG TAB PO SCH (14:24)
[2021-11-05] MEDS: VALPROIC ACID 250 MG/5 ML ORAL LIQD PO SCH (14:25)
[2021-11-05] MEDS: hydroCHLOROthiazide 12.5 MG CAP PO SCH (14:27)
[2021-11-05] MEDS: NORTRIPTYLINE 10 MG CAP PO SCH ×2 (21:14→21:23)
[2021-11-05] MEDS: MIRTAZAPINE 15 MG TAB PO SCH ×2 (21:15→21:23)
--- NOTE | 2021-11-06 10:21 | Progress Note ---
Subjective Date of service: 11/06/21 Principal diagnosis: Dementia w/Bheavioral Disturbance Subjective Comment: The patient was seen today. He is lying in bed partially disrobed. He is resting with his eyes closes, but blinks and opens them when I call his name. He doesn't respond to me. I spoke with Jaky for hospice placement yesterday. Discussed needs in order for the patient to be admitted into hospice. Made adjustments as necessary. Jaky stated transport would be arranged. REVIEW OF SYSTEMS Unable to assess MENTAL STATUS EXAMINATION Unable to assess Assessment (1) Alzheimer's Disease Treatment Plan Patient admitted for inpatient psychiatric evaluation, medication adjustment and close monitoring The patient's behavior, mood, sleep and appetite will be closely monitored. Patient enrolled in individual and group therapeutic sessions and encouraged to attend. Patient provided with a safe and structured environment. Patient's physical health needs will be addressed by the Hospitalist. Hospitalist Consulted Labs including CBC, CMP, Lipid profile and Hemoglobin A1C levels ordered for baseline reference Social Assessment will be completed and the Racket [employer]er will work with patient and family to ensure a suitable and safe disposition Medication adjustment will be made as clinically indicated No changes made today Usual Wellness Rastafari/Preservation: - Start Trazodone 50 mg po QHS & 50 mg po QHS PRN between 10 PM & 2 AM for insomnia - Start Melatonin 5 mg po QHS to promote circadian rhythm The patient agreed on the treatment plan, understood the risk, benefit, alternative treatment, potential consequence of no treatment, and gave informed consent. Estimated days: 1 Post hospital care: primary care provider, psychiatric provider Case staffed with Dr. Alvarado Medications and Allergies Allergies Allergy/AdvReac Type Severity Reaction Status Date / Time No Known Drug Allergies Allergy Unknown Verified 10/25/21 20:31 Home Medications Medication Instructions Recorded Confirmed Last Taken Type Benazepril/Hydrochlorothiazide 10 - 12.5 mg PO DAILY 10/25/21 10/25/21 Unknown History [Lotensin Hct 10-12.5 mg Tablet] Nortriptyline HCl 10 mg PO HS 10/25/21 10/25/21 Unknown History Pantoprazole [Protonix TAB] 40 mg PO QDAY 10/25/21 10/25/21 Unknown History Potassium Chloride [K-Dur] 20 meq PO QDAY 10/25/21 10/25/21 Unknown History Azithromycin [Zithromax] 250 mg PO UNK 10/26/21 10/26/21 Unknown History Cefdinir 300 mg PO BID [facility]D DISPENSE 14 10/26/21 10/26/21 Unknown History CAPSULE hydroCHLOROthiazide [HCTZ] 12.5 mg PO QDAY capsule 11/03/21 Unknown Rx lisinopriL [Zestril TAB] 10 mg PO QDAY tablet 11/03/21 Unknown Rx Mirtazapine [Remeron 15mg TAB] 7.5 mg PO QHS #15 tablet 11/05/21 Unknown Rx Active Meds: Active Medications Hydrochlorothiazide (Hydrochlorothiazide 12.5 Mg Cap) 12.5 mg PO QDAY [facility] Last Admin: 11/05/21 14:27 Dose: 12.5 mg Lisinopril (Lisinopril 10 Mg Tab) 10 mg PO QDAY [facility] Last Admin: 11/05/21 14:24 Dose: 10 mg Mirtazapine (Mirtazapine 15 Mg Tab) 7.5 mg PO QHS [facility] Last Admin: 11/05/21 21:23 Dose: Not Given Nortriptyline HCl (Nortriptyline 10 Mg Cap) 10 mg PO [facility] Last Admin: 11/05/21 21:23 Dose: Not Given Pantoprazole Sodium (Pantoprazole 40 Mg Tab) 40 mg PO QDAY [facility] Last Admin: 11/05/21 14:24 Dose: 40 mg Potassium Chloride (Potassium Chloride Er 20 Meq Tab) 20 meq PO QDAY [facility] Last Admin: 11/05/21 14:24 Dose: 20 meq Valproic Acid (Valproic Acid 250 Mg/5 Ml Oral Liqd) 125 mg PO DAILY [facility] Last Admin: 11/05/21 14:25 Dose: 125 mg Results - Results Labs/Vitals: Laboratory Last Values WBC 7.1 K/mm3 (4.5-11.0) 11/02/21 19: RBC 4.58 M/mm3 (3.65-5.03) 11/02/21 19: Hgb 13.8 gm/dl (11.8-15.2) 11/02/21 19: Hct 41.9 % (35.5-45.6) 11/02/21 19: MCV 91 fl (84-94) 11/02/21 19: MCH 30 pg (28-32) 11/02/21 19: MCHC 33 % (32-34) 11/02/21 19: RDW 13.5 % (13.2-15.2) 11/02/21 19: Plt Count 396 K/mm3 (140-440) 11/02/21 19:23 Lymph % (Auto) 24.0 % (13.4-35.0) 11/02/21 19:23 Tate % (Auto) 9.1 % (0.0-7.3) H 11/02/21 19: Eos % (Auto) 2.9 % (0.0-4.3) 11/02/21 19: Baso % (Auto) 0.4 % (0.0-1.8) 11/02/21: Lymph # (Auto) 1.7 K/mm3 (1.2-5.4) 11/02/21 19: Tate # (Auto) 0.6 K/mm3 (0.0-0.8) 11/02/21: Eos # (Auto) 0.2 K/mm3 (0.0-0.4) 11/02/21 19: Baso # (Auto) 0.0 K/mm3 (0.0-0.1) 11/02/21: Seg Neutrophils % 63.6 % (40.0-70.0) 11/02/21: Seg Neutrophils # 4.5 K/mm3 (1.8-7.7) 11/02/21 19:23 Sodium 153 mmol/L (137-145) H 11/02/21 19:23 Potassium 3.3 mmol/L (3.6-5.0) L 11/02/21 19: Chloride 109.3 mmol/L (98-107) H 11/02/21 19:23 Carbon Dioxide 30 mmol/L (22-30) 11/02/21 19: Anion Gap 17 mmol/L 11/02/21 19:23 BUN 28 mg/dL (9-20) H 11/02/21 19:23 Creatinine 1.0 mg/dL (0.8-1.3) 11/02/21 19:23 Estimated GFR > 60 ml/min 11/02/21 19:23 BUN/Creatinine Ratio 28 % 11/02/21 19:23 Glucose 155 mg/dL (75-100) H 11/02/21 19:23 POC Glucose 146 mg/dL (70-105) H 11/05/21 19:15 Hemoglobin A1c 8.1 % (4-6) H 10/27/21 10:52 Calcium 9.3 mg/dL (8.4-10.2) 11/02/21 19:23 Total Bilirubin 0.90 mg/dL (0.1-1.2) 10/27/21 10:52 AST 20 units/L (5-40) 10/27/21 10:52 ALT 24 units/L (7-56) 10/27/21 10:52 Alkaline Phosphatase 95 units/L (35-129) 10/27/21 10:52 Total Protein 7.5 g/dL (6.3-8.2) 10/27/21 10:52 Albumin 3.4 g/dL (3.9-5) L 10/27/21 10:52 Albumin/Globulin Ratio 0.8 % 10/27/21 10:52 Triglycerides 135 mg/dL (2-149) 10/27/21 10:52 Cholesterol 177 mg/dL (50-199) 10/27/21 10:52 LDL Cholesterol Direct 119 mg/dL (50-130) 10/27/21 10:52 HDL Cholesterol 34 mg/dL (40-59) L 10/27/21 10:52 Cholesterol/HDL Ratio 5.20 % 10/27/21 10:52 TSH 1.720 mlU/mL (0.270-4.200) 10/27/21 10:52 SARS-CoV-2 (PCR) Negative (Negative) 11/04/21 08:45 Last Vital Signs Temp 98.4 F 11/05/21 19:18 Pulse 94 H 11/05/21 19:18 Resp 17 11/05/21 19:18 BP 145/92 11/05/21 19:18 Pulse Ox 98 11/05/21 19:18
[2021-11-06 12:51] VITALS: BP 141/88
[2021-11-06] MEDS: POTASSIUM CHLORIDE ER 20 MEQ TAB PO SCH (13:00)
[2021-11-06] MEDS: PANTOPRAZOLE 40 MG TAB PO SCH (13:00)
[2021-11-06] MEDS: LISINOPRIL 10 MG TAB PO SCH (13:00)
[2021-11-06] MEDS: VALPROIC ACID 250 MG/5 ML ORAL LIQD PO SCH (13:01)
[2021-11-06] MEDS: hydroCHLOROthiazide 12.5 MG CAP PO SCH (13:28)
== END 2021-11-06 15:00 | disposition hospice, inpatient (51) | DRG 56 ==
LOC: UNDOADMIN 17:02 → 3A 17:02 → 5A 22:44
PROVIDERS: ADMIT Psychiatry & Neurology Psychiatry; ATTEND Psychiatry & Neurology Psychiatry
DX: G30.9 Alzheimer's disease, unspecified (principal); J18.9 Pneumonia, unspecified organism; F01.51 Vascular dementia, unspecified severity, with behavioral disturbance; F02.81 Dementia in other diseases classified elsewhere, unspecified severity, with behavioral disturbance; F20.9 Schizophrenia, unspecified; I67.2 Cerebral atherosclerosis; I10 Essential (primary) hypertension; K21.9 Gastro-esophageal reflux disease without esophagitis; Z20.822 Contact with and (suspected) exposure to COVID-19; F41.1 Generalized anxiety disorder; F32.9 Major depressive disorder, single episode, unspecified
CPT/HCPCS: 36415; 71045; 80048; 80053; 80061; 82962; 83036; 84443; 85025; G0378; U0003